=== PATIENT | male | born 1980 | race Caucasian/White ===

== ENCOUNTER 2018-10-26 15:54 | Inpatient (IN) ==
[2018-10-26 16:41] LABS: Baso % (Auto) 0.1 % (0.0-2.0); Hematocrit 53.1 % (39.0-51.0); Hemoglobin 18.8 gm/dL (13.0-17.0); Lymph # (Auto) 1.4 th/mm3 (1.0-4.8); Lymph % (Auto) 6.1 % (9.0-44.0); Mean Corpuscular HGB Conc 35.5 % (32.0-36.0); Mean Corpuscular Hemoglobin 31.4 pg (27.0-34.0); Mean Corpuscular Volume 88.5 fL (80.0-100.0); Mean Platelet Volume 7.8 fL (7.0-11.0); Mono # (Auto) 1.5 th/mm3 (0.0-0.9); Mono % (Auto) 6.8 % (0.0-8.0); Neut # (Auto) 19.5 th/mm3 (1.8-7.7); Platelet Count 340 th/mm3 (150-450); Red Cell Distribution Width 15.2 % (11.6-17.2); White Blood Count 22.4 th/mm3 (4.0-11.0)
--- NOTE | 2018-10-26 16:45 | XR ---
EXAM DATE: 10/26/2018 4:34 PM EST AGE/SEX: 38 years / Male INDICATIONS: Chest pain CLINICAL DATA: This is the patient's initial encounter. Patient reports that signs and symptoms have been present for 2 weeks and indicates a pain score of 8/10. MEDICAL/SURGICAL HISTORY: None. None. COMPARISON: No prior exams available for comparison. FINDINGS: The lungs are clear without infiltrate, nodule, or mass. There is no appreciable pleural effusion for technique. Heart and mediastinum are unremarkable. CONCLUSION: No acute cardiopulmonary disease. Electronically signed by: Fox Whitney MD Board Certified Radiologist 10/26/2018 4:43 PM EST
[2018-10-26 16:46] LABS: Activated Partial Thrombo Time 23.1 sec (23.4-31.7)
[2018-10-26 17:05] LABS: Alanine Aminotransferase 48 U/L (12-78); Albumin 3.9 g/dL (3.4-5.0); Anion Gap 10 meq/L (5-15); Aspartate Aminotransferase 36 U/L (15-37); Blood Urea Nitrogen 17 mg/dL (7-18); Calcium 8.5 mg/dL (8.5-10.1); Carbon Dioxide 23.2 meq/L (21.0-32.0); Chloride 102 meq/L (98-107); Glomerular Filtration Rate 53 mL/min (>89); Glucose,Random 140 mg/dL (74-106); Magnesium 1.9 mg/dL (1.5-2.5); Potassium 3.9 meq/L (3.5-5.1); Sodium 135 meq/L (136-145)
[2018-10-26 17:06] LABS: Alkaline Phosphatase 128 U/L (45-117); Creatine Kinase 150 U/L (39-308); Lipase 16783 U/L (73-393); Total Protein 7.9 g/dL (6.4-8.2)
[2018-10-26] MEDS ORDERED: Morphine Inj 4 MG/ML Vial IV.PUSH ONE (17:07)
--- NOTE | 2018-10-26 17:13 | ED ---
HPI General Chief Complaint: Chest Pain Stated Complaint: Chest Pain/Abd pain/ Time Seen by Provider: 10/26/18 16:01 Source: patient Mode of arrival: ambulatory Limitations: other (pain) History of Present Illness HPI narrative: 38-year-old male presents with shortness of breath, chest pain and upper abdominal pain over the past couple of days. He states last week he went to an urgent care and was given an antibiotic for an upper respiratory infection. He states he has a little bit of a cough but that portion has gotten better. He states he is having significant pain and having a hard time answering questions. His mother helps supplement history. Related Data Home Medications Medication Instructions Recorded Confirmed amoxicillin-pot clavulanate 1 tab PO BID 10/26/18 10/26/18 [Augmentin] prednisone 60 mg PO DAILY 10/26/18 10/26/18 Allergies Allergy/AdvReac Type Severity Reaction Status Date / Time No Known Allergies Allergy Verified 10/26/18 16:04 Review of Systems ROS: all other systems reviewed are negative PMFSH History History Provided By: Patient (Denies medical history) Social History Social History Smoking Status: Never smoker How Often Do You Have a Drink Containing Alcohol: Never Recent Travel in [place] within the Last 8 Weeks: No Recent Out of Country Travel within the Last 8 Weeks: No Immunization History Tetanus Immunization: Unsure Exam Narrative Exam Narrative: GENERAL: 38 y/o male who appears uncomfortable SKIN: Focused skin assessment cool/dry. HEAD: Atraumatic. Normocephalic. EYES: Pupils equal and round. No scleral icterus. No injection or drainage. ENT: No nasal bleeding or discharge. Mucous membranes pink and moist. NECK: Trachea midline. No JVD. CARDIOVASCULAR: Regular rate and rhythm. RESPIRATORY: No accessory muscle use. Clear to auscultation. Breath sounds equal bilaterally. GASTROINTESTINAL: Abdomen soft,ttp to upper abdomen, MUSCULOSKELETAL: No obvious deformities. No clubbing. No cyanosis. NEUROLOGICAL: Awake. Motor grossly within normal limits. Normal speech. Course Reevaluation(s) Reevaluation #1: Given significantly elevated white count lactate was added on an IV fluid bolus was given. Morphine provided as pain is increasing Reevaluation #2: Patient has significantly elevated lipase consistent with pancreatitis. CT chest canceled. Will proceed with CT abdomen and admit, patient updated and feels better Consultations Consultation #1: dr castaneda agrees to admit Initial Documented Vital Signs Temperature 96.0 F L 10/26/18 15:56 Pulse Rate 107 H 10/26/18 15:56 Respiratory Rate 32 H 10/26/18 15:56 Blood Pressure 157/110 H 10/26/18 15:56 Pulse Oximetry 98 10/26/18 15:56 Last Documented Vital Signs Temperature 98.5 F 10/26/18 16:22 Pulse Rate 89 10/26/18 17:22 Respiratory Rate 32 H 10/26/18 15:56 Blood Pressure 157/110 H 10/26/18 15:56 Pulse Oximetry 98 10/26/18 15:56 Medical Decision Making MDM Narrative Medical decision making narrative: We will check blood work, imaging and reevaluate Medical Screen Exam Complete: Yes Emergency Medical Condition: Yes Differential Diagnosis Differential Diagnosis: Cholecystitis, kidney stone, PE, gastric ulcer Lab Data Result diagrams: 10/26/18 16:17 10/26/18 16:17 Lab Results 10/26/18 10/26/18 10/26/18 Range/Units 16:17 16:17 16:17 WBC 22.4 H (4.0-11.0) th/mm3 RBC 6.00 H (4.50-5.90) mil/mm3 Hgb 18.8 H (13.0-17.0) gm/dL Hct 53.1 H (39.0-51.0) % MCV 88.5 (80.0-100.0) fL MCH 31.4 (27.0-34.0) pg MCHC 35.5 (32.0-36.0) % RDW 15.2 (11.6-17.2) % Plt Count 340 (150-450) th/mm3 MPV 7.8 (7.0-11.0) fL Prelim Diff (Auto) Slide review pending Neut % (Auto) 87.0 H (16.0-70.0) % Lymph % (Auto) 6.1 L (9.0-44.0) % Gaines % (Auto) 6.8 (0.0-8.0) % Eos % (Auto) 0.0 (0.0-4.0) % Baso % (Auto) 0.1 (0.0-2.0) % Neut # (Auto) 19.5 H (1.8-7.7) th/mm3 Lymph # (Auto) 1.4 (1.0-4.8) th/mm3 Gaines # (Auto) 1.5 H (0.0-0.9) th/mm3 Eos # (Auto) 0.0 (0.0-0.4) th/mm3 Baso # (Auto) 0.0 (0.0-0.2) th/mm3 WBC Differential . Diff Scan Auto diff confirmed Differential Comment . PT 10.0 (9.8-11.6) sec INR 1.0 Ratio APTT 23.1 L (23.4-31.7) sec Sodium 135 L (136-145) meq/L Potassium 3.9 (3.5-5.1) meq/L Chloride 102 (98-107) meq/L Carbon Dioxide 23.2 (21.0-32.0) meq/L Anion Gap 10 (5-15) meq/L BUN 17 (7-18) mg/dL Creatinine 1.46 H (0.60-1.30) mg/dL Estimated GFR 53 L (>89) mL/min Random Glucose 140 H (74-106) mg/dL Calcium 8.5 (8.5-10.1) mg/dL Magnesium 1.9 (1.5-2.5) mg/dL Total Bilirubin 0.7 (0.2-1.0) mg/dL AST 36 (15-37) U/L ALT 48 (12-78) U/L Alkaline Phosphatase 128 H (45-117) U/L Total Creatine Kinase 150 (39-308) U/L CK-MB (CK-2) 2.4 (0.5-3.6) ng/mL Troponin I Less than 0.02 L (0.02-0.05) ng/mL B-Natriuretic Peptide (0-100) pg/mL Total Protein 7.9 (6.4-8.2) g/dL Albumin 3.9 (3.4-5.0) g/dL Lipase 64703 H (73-393) U/L Serum Alcohol Less than 3 (0-5) mg/dL 10/26/18 Range/Units 16:17 WBC (4.0-11.0) th/mm3 RBC (4.50-5.90) mil/mm3 Hgb (13.0-17.0) gm/dL Hct (39.0-51.0) % MCV (80.0-100.0) fL MCH (27.0-34.0) pg MCHC (32.0-36.0) % RDW (11.6-17.2) % Plt Count (150-450) th/mm3 MPV (7.0-11.0) fL Prelim Diff (Auto) Neut % (Auto) (16.0-70.0) % Lymph % (Auto) (9.0-44.0) % Gaines % (Auto) (0.0-8.0) % Eos % (Auto) (0.0-4.0) % Baso % (Auto) (0.0-2.0) % Neut # (Auto) (1.8-7.7) th/mm3 Lymph # (Auto) (1.0-4.8) th/mm3 Gaines # (Auto) (0.0-0.9) th/mm3 Eos # (Auto) (0.0-0.4) th/mm3 Baso # (Auto) (0.0-0.2) th/mm3 WBC Differential Diff Scan Differential Comment PT (9.8-11.6) sec INR Ratio APTT (23.4-31.7) sec Sodium (136-145) meq/L Potassium (3.5-5.1) meq/L Chloride (98-107) meq/L Carbon Dioxide (21.0-32.0) meq/L Anion Gap (5-15) meq/L BUN (7-18) mg/dL Creatinine (0.60-1.30) mg/dL Estimated GFR (>89) mL/min Random Glucose (74-106) mg/dL Calcium (8.5-10.1) mg/dL Magnesium (1.5-2.5) mg/dL Total Bilirubin (0.2-1.0) mg/dL AST (15-37) U/L ALT (12-78) U/L Alkaline Phosphatase (45-117) U/L Total Creatine Kinase (39-308) U/L CK-MB (CK-2) (0.5-3.6) ng/mL Troponin I (0.02-0.05) ng/mL B-Natriuretic Peptide 7 (0-100) pg/mL Total Protein (6.4-8.2) g/dL Albumin (3.4-5.0) g/dL Lipase (73-393) U/L Serum Alcohol (0-5) mg/dL Imaging Data Radiologist's impression: Chest X-Ray 10/26/18 16:09 CONCLUSION: No acute cardiopulmonary disease. Discharge Plan Discharge Disposition Patient Disposition: ED Admit(ED Internal Use Only) Discharge Order Discharge Orders: ED Use Only Admit Order (Routine); Ordered 10/26/18 Ordered By: Barbara Morataya Discharge Details Diagnosis: Acute pancreatitis Physicians Team ED Provider: Barbara Morataya Primary Care Provider: Primary Care Alexis,Angie Attending Provider: Cyril Castaneda Status ED Status: Admitted Patient
[2018-10-26] MEDS ORDERED: Sod Chloride 0.9% Inj 1,000 ML IV.SIG SCH (17:15)
[2018-10-26] MEDS ORDERED: Piperacil/Tazo 3.375 GM Premix 3.375 GM/50 ML PIGGYBACK IV.SIG ONE (17:15)
[2018-10-26 17:22] LABS: Creatine Kinase MB 2.4 ng/mL (0.5-3.6)
[2018-10-26] MEDS: Sod Chloride 0.9% Inj 1,000 ML IV.SIG SCH ×2 (17:23→18:15)
--- NOTE | 2018-10-26 18:03 | CT ---
EXAM DATE: 10/26/2018 5:55 PM EST AGE/SEX: 38 years / Male INDICATIONS: Epigastric pain and shortness of breath. CLINICAL DATA: This is the patient's initial encounter. Patient reports that signs and symptoms have been present for 2 days and indicates a pain score of 10/10. MEDICAL/SURGICAL HISTORY: None. None. ORAL CONTRAST: No oral contrast ingested. RADIATION DOSE: 17.07 CTDI (mGy) ; Patient body habitus COMPARISON: No prior exams available for comparison. TECHNIQUE: Multiple contiguous axial images were obtained through the abdomen and pelvis following b olus infusion of 97 ml Omnipaque 350 (iohexol) nonionic water-soluble contrast as a single exam dos e. No oral contrast ingested. Using automated exposure control and adjustment of the mA and/or kV ac cording to patient size, radiation dose was kept as low as reasonably achievable to obtain optimal di agnostic quality images. DICOM format image data is available electronically for review and comparis on. FINDINGS: Lower Lungs: The visualized lower lungs are clear. Liver: Diffuse hypodensity indicating hepatic steatosis. No evidence of focal mass or biliary ductal dilatation. Gallbladder is within normal limits. Spleen: Homogeneous density without enlargement. Pancreas: There is prominent diffuse peripancreatic edema and stranding opacity. Fluid extends into the anterior pararenal spaces. No rounded organized fluid collections identified. No prominent areas of nonenhancing pancreatic necrosis. Kidneys: Normal in size and shape. No evidence of mass or hydronephrosis. Adrenal Glands: Unremarkable. Aorta: The aorta and proximal iliac vessels are grossly unremarkable without aneurysmal dilation. Bowel/Mesentery: No evidence of bowel dilatation. Appendix within normal limits. No free air. Abdominal Wall: Intact. Retroperitoneum: No evidence of adenopathy in the retrocrural, para-aortic, or deep pelvic regions. Bladder: Contours are smooth. Reproductive Organs: No abnormal masses or calcifications seen. Inguinal: The inguinal region is unremarkable without evidence of adenopathy. Bony Structures: Unremarkable. CONCLUSION: 1. Prominent diffuse peripancreatic edema indicating acute pancreatitis. No areas of nonenhancing pa ncreatic necrosis or organized fluid collections identified. 2. Hepatic steatosis. Electronically signed by: Marco Antonio Neil MD Board Certified Radiologist 10/26/2018 6:01 PM EST
[2018-10-26] MEDS: Sod Chloride 0.9% Inj 1,000 ML IV.CONT SCH (18:14)
--- NOTE | 2018-10-26 18:21 | P.HPIM ---
History of Present Illness Primary Care Physician: No Primary Care Physician History of Present Illness: 38-year-old male with a past medical history of obesity and recent cough presents to the ER with severe abdominal pain. Emergency room workup revealed a markedly elevated lipase level and CT confirmation of pancreatitis. He states that he has been coughing for the last 3 weeks and utilized a number of [id number] medications including Sudafed and Robitussin, when that did not work he visited his physician and was prescribed Augmentin along with prednisone. Last night he had 2 alcohol beverages and onset of his symptoms were noticeable this morning, worsening throughout the day. He has had nausea associated with his pain, denies vomiting , denies diarrhea. He denies chest pain, heart palpitations, shortness of breath. Inpatient Certification Inpatient Certification: I certify that the inpatient services were ordered in accordance with Medicare regulations governing the order. This includes certification that hospital inpatient services are reasonable and necessary and in the case of services not specified as inpatient-only under 42 CFR 419.22(n), that they are appropriately provided as inpatient services in accordance to with the 2-midnight benchmark under 43 CFR 412.3(e) Estimated Total Length of Stay (Days): 4 Plans for Post Hospital Care: Home Review of Systems Review of Systems: all other systems reviewed are negative [facility] Social History Social History Smoking Status: Never smoker How Often Do You Have a Drink Containing Alcohol: Never Recent Travel in [facility] within the Last 8 Weeks: No Recent Out of Country Travel within the Last 8 Weeks: No Immunization History Tetanus Immunization: Unsure Medications and Allergies Allergies Allergy/AdvReac Type Severity Reaction Status Date / Time No Known Allergies Allergy Verified 10/26/18 16:04 Home Medications Medication Instructions Recorded Confirmed Type amoxicillin-pot clavulanate 1 tab PO BID 10/26/18 10/26/18 History [Augmentin] prednisone 60 mg PO DAILY 10/26/18 10/26/18 History Active Medications: Active Medications Al Hydroxide/Mg Hydroxide (Milk Of Radha Liq) 30 ml PO Q12H PRN PRN Reason: Mild Constipation Sodium Chloride (Ns Inj) 1,000 mls @ 100 mls/hr IV.CONT .Q10H SYLVIA Last Admin: 10/26/18 18:14 Dose: 100 mls/hr Morphine Sulfate (Morphine Inj) 4 mg IV.PUSH Q4H PRN PRN Reason: Acute Pain Ondansetron HCl (Zofran Inj) 4 mg IV.PUSH Q6H PRN PRN Reason: NAUSEA OR VOMITING Sodium Chloride (Ns Flush) 2 ml IV.FLUSH UNSCH PRN PRN Reason: FLUSH AFTER USING IV ACCESS Sodium Chloride (Ns Flush) 2 ml IV.FLUSH BID SYLVIA Sodium Chloride (Ns Flush) 2 ml IV.FLUSH PRN PRN PRN Reason: FLUSH AFTER USING IV ACCESS Physical Exam Vital signs: Last Vital Signs Temp 98.5 F 10/26/18 16:22 Pulse 89 10/26/18 17:22 Resp 32 H 10/26/18 15:56 BP 157/110 H 10/26/18 15:56 Pulse Ox 98 10/26/18 15:56 Intake & Output 10/24/18 10/25/18 10/26/18 10/27/18 06:59 06:59 06:59 06:59 Intake Total 1050 / 1050 Balance 1050 / 1050 Weight 140.614 kg Narrative: GENERAL: AAOx3, no acute distress, adequate nutrition obese, and pain SKIN: Warm and dry, no rashes. HEAD: Atraumatic. Normocephalic. EYES: Pupils equal, round, reactive to light. No scleral icterus. No injection or drainage. ENT: No nasal bleeding or discharge. Moist mucous membranes. Nonerythematous oropharynx. NECK: Trachea midline. No JVD. Thyroid size within normal limits. CARDIOVASCULAR: Borderline tachycardia. No murmur, no gallops, no rubs. RESPIRATORY: Clear and equal to auscultation bilaterally. No crackles, no wheezes. No accessory muscle use. GASTROINTESTINAL: Abdomen soft, LUQ TTP, nondistended, hypoactive bowel sounds. Hepatic and splenic margins not palpable. MUSCULOSKELETAL: Extremities without clubbing or cyanosis. No obvious deformities. No edema. NEUROLOGICAL: Awake and alert. No obvious cranial nerve deficits. Motor grossly within normal limits. No focal deficits. Five out of 5 muscle strength in the arms and legs. Normal speech. PSYCHIATRIC: Appropriate mood and affect; insight and judgment normal. Results Labs CBC & Chem 7: 10/26/18 16:17 10/26/18 16:17 Imaging Impressions Abdomen/Pelvis CT 10/26/18 16:09 CONCLUSION: 1. Prominent diffuse peripancreatic edema indicating acute pancreatitis. No areas of nonenhancing pancreatic necrosis or organized fluid collections identified. 2. Hepatic steatosis. Chest X-Ray 10/26/18 16:09 CONCLUSION: No acute cardiopulmonary disease. Caprini VTE Risk Assessment Caprini VTE Risk Assessment: Moderate/High Risk (score >= 2) Caprini Risk Assessment Model: Point Value = 1 Point Value = 2 Point Value = 3 Point Value = 5 Age 41-60 Minor surgery BMI > 25 kg/m2 Swollen legs Varicose veins or History of unexplained or recurrent spontaneous Oral contraceptives or hormone replacement Sepsis (< 1 month) Serious lung disease, including pneumonia (< 1 month) Abnormal pulmonary function Acute myocardial infarction Congestive heart failure (< 1 month) History of inflammatory bowel disease Medical patient at bed rest Age 61-74 Arthroscopic surgery Major open surgery (> 45 min) Laparoscopic surgery (> 45 min) Malignancy Confined to bed (> 72 hours) Immobilizing plaster cast Central venous access Age >= 75 History of VTE Family history of VTE Factor V Leiden Prothrombin [id number] Lupus anticoagulant Anticardiolipin antibodies Elevated serum homocysteine Heparin-induced thrombocytopenia Other congenital or acquired thrombophilia Stroke (< 1 month) Elective arthroplasty Hip, pelvis, or leg fracture Acute spinal cord injury (< 1 month) Prophylaxis Regimen: Total Risk Factor Score Risk Level Prophylaxis Regimen 0-1 Low Early ambulation 2 Moderate Order ONE of the following: *Sequential Compression Device (SCD) *Heparin 5000 units SQ BID 3-4 Higher Order ONE of the following medications: *Heparin 5000 units SQ TID *Enoxaparin/Lovenox 40 mg SQ daily (WT < 150 kg, CrCl > 30 mL/min) *Enoxaparin/Lovenox 30 mg SQ daily (WT < 150 kg, CrCl > 10-29 mL/min) *Enoxaparin/Lovenox 30 mg SQ BID (WT < 150 kg, CrCl > 30 mL/min) AND/OR *Sequential Compression Device (SCD) 5 or more Highest Order ONE of the following medications: *Heparin 5000 units SQ TID (Preferred with Epidurals) *Enoxaparin/Lovenox 40 mg SQ daily (WT < 150 kg, CrCl > 30 mL/min) *Enoxaparin/Lovenox 30 mg SQ daily (WT < 150 kg, CrCl > 10-29 mL/min) *Enoxaparin/Lovenox 30 mg SQ BID (WT < 150 kg, CrCl > 30 mL/min) AND *Sequential Compression Device (SCD) Assessment and Plan Plan Acute pancreatitis Patient denies any previous episodes He denies any excessive alcohol intake This result was possibly a combination of alcohol with a number of prescription and [id number] meds We will check cholesterol level for triglycerides with a.m. labs Continue with morphine for pain control, added Toradol for breakthrough Monitor on telemetry for risk of bleeding Upper respiratory infection Covered with Zosyn IV Chest x-ray within normal limits DVT prophylaxis SCDs
[2018-10-26] MEDS: Ketorolac Inj 30 MG/ML (IVP) Vial IV.PUSH PRN (20:38)
[2018-10-26] MEDS: Morphine Inj 4 MG/ML Vial IV.PUSH PRN (20:51)
[2018-10-27] MEDS: Morphine Inj 4 MG/ML Vial IV.PUSH PRN ×2 (01:01→05:49)
[2018-10-27] MEDS: Ketorolac Inj 30 MG/ML (IVP) Vial IV.PUSH PRN (02:49)
[2018-10-27 06:16] LABS: Hematocrit 56.1 % (39.0-51.0); Hemoglobin 18.6 gm/dL (13.0-17.0); Mean Corpuscular HGB Conc 33.2 % (32.0-36.0); Mean Corpuscular Hemoglobin 29.8 pg (27.0-34.0); Mean Corpuscular Volume 89.7 fL (80.0-100.0); Mean Platelet Volume 7.8 fL (7.0-11.0); Platelet Count 280 th/mm3 (150-450); Red Blood Count 6.26 mil/mm3 (4.50-5.90); Red Cell Distribution Width 15.3 % (11.6-17.2); White Blood Count 24.4 th/mm3 (4.0-11.0)
[2018-10-27 06:43] LABS: Anion Gap 12 meq/L (5-15); Blood Urea Nitrogen 18 mg/dL (7-18); Calcium 8.5 mg/dL (8.5-10.1); Carbon Dioxide 17.7 meq/L (21.0-32.0); Chloride 106 meq/L (98-107); Cholesterol 217 mg/dL (120-200); Glucose,Random 146 mg/dL (74-106); Potassium 4.1 meq/L (3.5-5.1); Sodium 136 meq/L (136-145); Triglycerides 256 mg/dL (42-150)
[2018-10-27 06:44] LABS: HDL Cholesterol 44.2 mg/dL (40.0-60.0); LDL Cholesterol,Calculated 122 mg/dL (0-99); Lipase 11304 U/L (73-393)
--- NOTE | 2018-10-27 07:22 | P.PNIM ---
Subjective Interval history: Patient complain of abdominal pain says current pain medications does not help. No change pain medications per pain scale. Also lactic acid is noted elevated. And patient received bolus was normal saline. Also low urine output. Patient is anxious. Also with constipation did not have a bowel movement in 4 days. Passing gas. With abdominal distention. No fever or chills. Not much nausea, did not vomit. Physical Exam Vital signs: Last Vital Signs Temp 97.8 F 10/27/18 04:15 Pulse 110 H 10/27/18 04:15 Resp 20 10/27/18 04:15 BP 135/83 10/27/18 04:15 Pulse Ox 98 10/27/18 04:15 Intake & Output 10/25/18 10/26/18 10/27/18 10/28/18 06:59 06:59 06:59 06:59 Intake Total 1065 / 1065 Balance 1065 / 1065 Weight 92.9 kg Narrative: GENERAL: AAOx3, no acute distress, adequate nutrition obese, and pain CARDIOVASCULAR: Borderline tachycardia. No murmur, no gallops, no rubs. RESPIRATORY: Clear and equal to auscultation bilaterally. No crackles, no wheezes. No accessory muscle use. GASTROINTESTINAL: Abdomen soft, LUQ TTP, distended, hypoactive bowel sounds. MUSCULOSKELETAL: Extremities without clubbing or cyanosis. No obvious deformities. No edema. NEUROLOGICAL: Awake and alert. No obvious cranial nerve deficits. Motor grossly within normal limits. No focal deficits. Five out of 5 muscle strength in the arms and legs. Normal speech. PSYCHIATRIC: Appropriate mood and affect; insight and judgment normal. Results Labs CBC & Chem 7: 10/27/18 06:00 10/27/18 06:00 Imaging Imaging: Impressions Abdomen/Pelvis CT 10/26/18 16:09 CONCLUSION: 1. Prominent diffuse peripancreatic edema indicating acute pancreatitis. No areas of nonenhancing pancreatic necrosis or organized fluid collections identified. 2. Hepatic steatosis. Chest X-Ray 10/26/18 16:09 CONCLUSION: No acute cardiopulmonary disease. Assessment and Plan Plan Acute pancreatitis Liver steatosis Constipation Patient denies any previous episodes He denies any excessive alcohol intake This result was possibly a combination of alcohol with a number of prescription and bzqn-[id number] meds Check cholesterol level for triglycerides DC morphine as patient says doesn't help, start norco pO per pain scale, add dilaudid IV for breakthrough pain Monitor on telemetry for risk of bleeding With abdominal distention, order KUB, might need NG tube for decompression Bowel regimen Antiemetics and Derrick Upper respiratory infection With severe sepsis leukocytosis, tachycardia, source likely upper respiratory infection versus GI, acute kidney injury with elevated creatinine, lactic acidosis. Trend lactic acid Covered with Zosyn IV Chest x-ray within normal limits Increase IV fluids, give normal saline bolus Decreased urine output, give IVF if still not able to urinate will do bladder scan . Check UA Severe lactic acidosis Give 2L NS and increased mentainance IVF NS at 150 cc/hr DVT prophylaxis SCDs Discussed with the nurse, patient. Progress Note: Quality VTE Deep Vein Thrombosis/Pulmonary Embolism Present on Admission: No
[2018-10-27] MEDS ORDERED: Sod Chloride 0.9% Inj 2,000 ML IV.SIG ONE (07:45)
[2018-10-27] MEDS: Sod Chloride 0.9% Inj 1,000 ML IV.CONT SCH ×3 (08:30→23:17)
[2018-10-27] MEDS: HYDROmorphone PF Inj 0.5 MG/0.5 ML Syringe IV.PUSH PRN ×4 (08:35→21:44)
[2018-10-27] MEDS ORDERED: LORazepam 0.5 MG Tablet PO PRN ×2 (12:50→15:00)
[2018-10-27 13:39] LABS: Bacteria,Urine Rare /hpf; Bilirubin,Urine Negative (Negative); Clarity,Urine Cloudy (Clear); Color,Urine Amber (Yellw/Straw); Glucose,Urine (UA) Negative (Negative); Hyaline Casts,Urine 142 /lpf (0-3); Leukocyte Esterase,Urine Negative (Negative); Mucus,Urine Moderate /lpf (Occasional); Nitrite,Urine Negative (Negative); Specific Gravity,Urine 1.045 (1.002-1.035); Squamous Epithelial Cell,Urine 1 /hpf (0-5)
[2018-10-27] MEDS: Sod Chloride 0.9% Inj 1,000 ML IV.SIG SCH ×2 (14:55→15:35)
[2018-10-27] MEDS: Simethicone 125 MG Chew Tablet PO PRN (15:34)
[2018-10-27] MEDS ORDERED: Sod Chloride 0.9% Inj 1,000 ML IV.SIG ONE (16:11)
--- NOTE | 2018-10-27 18:10 | XR ---
EXAM DATE: 10/27/2018 6:07 PM EST AGE/SEX: 38 years / Male INDICATIONS: Abdominal distention. CLINICAL DATA: This is the patient's initial encounter. Patient reports that signs and symptoms have been present for 1 day and indicates a pain score of 6/10. MEDICAL/SURGICAL HISTORY: None. None. COMPARISON: No prior exams available for comparison. FINDINGS: The abdominal bowel gas pattern is normal. No abnormal masses, calcifications, or organomegaly is s een. The osseous structures are unremarkable. CONCLUSION: Radiographically benign abdomen without obstruction or pneumoperitoneum. Electronically signed by: Terrence Medina MD Board Certified Radiologist 10/27/2018 6:08 PM EST
--- NOTE | 2018-10-27 21:20 | ECG ---
Date Performed: 10/26/2018 Time Performed: 16:07:10 PTAGE: 38 years EKG: Sinus rhythm NORMAL ECG INTERPRETATION BASED ON A DEFAULT AGE OF 38 YEARS NO PREVIOUS TRACING DOCTOR: David Pfeiffer Interpretating Date/Time 10/27/2018 21:18:10
[2018-10-27] MEDS ORDERED: Bisacodyl 10 MG Supp RECTAL ONE (22:01)
[2018-10-27] MEDS ORDERED: HYDROmorphone PF Inj 2 MG/ML Vial IV.PUSH ONE (22:01)
--- NOTE | 2018-10-28 01:31 | XR ---
EXAM DATE: 10/28/2018 1:22 AM EST AGE/SEX: 38 years / Male INDICATIONS: NG tube placement. Nausea, vomiting, constipation. CLINICAL DATA: This is the patient's subsequent encounter. Patient reports that signs and symptoms h ave been present for 2 days and indicates a pain score of 8/10. MEDICAL/SURGICAL HISTORY: Pancreatitis. None. COMPARISON: No prior exams available for comparison. FINDINGS: Examination of the abdomen demonstrates a nasogastric tube with the tip in the left upper quadrant at the duodenal jejunal junction. The stomach is decompressed. Gas-filled loops of nondilated large and small bowel noted within the upper abdomen. CONCLUSION: Tip of the NG tube at the duodenal jejunal junction. Electronically signed by: Juan Miguel Johnson MD Board Certified Radiologist 10/28/2018 1:29 AM EST
[2018-10-28] MEDS: HYDROmorphone PF Inj 0.5 MG/0.5 ML Syringe IV.PUSH PRN ×5 (01:45→20:26)
[2018-10-28] MEDS: Sod Chloride 0.9% Inj 1,000 ML IV.CONT SCH ×5 (02:11→23:29)
[2018-10-28] MEDS: Simethicone 125 MG Chew Tablet PO PRN (04:53)
[2018-10-28 05:09] LABS: Baso # (Auto) 0.1 th/mm3 (0.0-0.2); Baso % (Auto) 0.2 % (0.0-2.0); Eos % (Auto) 0.1 % (0.0-4.0); Hematocrit 47.3 % (39.0-51.0); Hemoglobin 15.7 gm/dL (13.0-17.0); Lymph # (Auto) 1.2 th/mm3 (1.0-4.8); Lymph % (Auto) 5.6 % (9.0-44.0); Mean Corpuscular HGB Conc 33.3 % (32.0-36.0); Mean Corpuscular Hemoglobin 30.1 pg (27.0-34.0); Mean Corpuscular Volume 90.3 fL (80.0-100.0); Mean Platelet Volume 7.8 fL (7.0-11.0); Mono # (Auto) 1.5 th/mm3 (0.0-0.9); Neut # (Auto) 18.4 th/mm3 (1.8-7.7); Neut % (Auto) 87.1 % (16.0-70.0); Platelet Count 219 th/mm3 (150-450); Red Blood Count 5.23 mil/mm3 (4.50-5.90); Red Cell Distribution Width 15.5 % (11.6-17.2); White Blood Count 21.1 th/mm3 (4.0-11.0)
[2018-10-28] MEDS: Thiamine Inj 100 MG in Sodium Chlor 0.9% Inj 100 ML IV.SIG SCH ×2 (05:24→09:25)
[2018-10-28 05:41] LABS: Calcium 7.8 mg/dL (8.5-10.1); Carbon Dioxide 22.5 meq/L (21.0-32.0); Potassium 4.8 meq/L (3.5-5.1)
--- NOTE | 2018-10-28 05:56 | CT ---
EXAM DATE: 10/28/2018 5:48 AM EST AGE/SEX: 38 years / Male INDICATIONS: Abdominal pain, vomiting. Evaluate for ischemic bowel. CLINICAL DATA: This is the patient's initial encounter. Patient reports that signs and symptoms have been present for 1 day and indicates a pain score of 10/10. MEDICAL/SURGICAL HISTORY: Pancreatitis. None. RADIATION DOSE: 7.56 CTDI (mGy) COMPARISON: No prior exams available for comparison. TECHNIQUE: Volumetric scanning was performed using a multi-row detector CT scanner during bolus infu clarissa of 100 ml Omnipaque 350 (iohexol) nonionic water-soluble contrast as a single exam dose. The data was post processed with a variety of visualization algorithms including full volume maximum inte nsity projection, multi-planar sliding thin slab reformation, curved planar reformation, and surface rendering techniques. Using automated exposure control and adjustment of the mA and/or kV according to patient size, radiation dose was kept as low as reasonably achievable to obtain optimal diagnostic quality images. DICOM format image data is available electronically for review and comparison. FINDINGS: ABDOMINAL AORTA: The abdominal aorta is normal in caliber and course. Aorta and inflow vessels are pa tent. The celiac and SMA are patent. SKYLER is occluded. Renal arteries are patent bilaterally. OTHER STRUCTURES: An acute inflammatory process is seen involving the pancreas and surrounding fat. A trace amount of free fluid is seen within the retroperitoneum adjacent to the spleen. A small amount of ascitic fluid is seen adjacent to the liver. No dilated bowel loops observed. Tiny posterior laye ring pleural effusions are noted bilaterally. Consolidation within both lung bases more pronounced on the left likely relating to atelectasis. CONCLUSION: 1. Although the SKYLER is occluded the celiac and SMA are widely patent. The SKYLER occlusion is clinicall y insignificant. 2. Changes consistent with acute pancreatitis. No pseudocyst observed. 3. Small volume ascites. 4. Bilateral pleural effusions with bibasilar consolidations likely relating to atelectasis. Electronically signed by: Juan Miguel Johnson MD Board Certified Radiologist 10/28/2018 5:55 AM EST
[2018-10-28 07:51] LABS: Eosinophils 1 % (0-4); Lymphocytes 4 % (9-44); Monocytes 6 % (0-8); Platelet Estimate Normal (Normal); Platelet Morphology Normal (Normal)
[2018-10-28 07:52] LABS: RBC Morphology Normal (Normal)
--- NOTE | 2018-10-28 15:48 | P.PNIM ---
Subjective Interval history: Follow-up visit for abdominal pain, abdominal distention, acute pancreatitis, liver steatosis, possible sepsis, anxiety, alcoholism and urinary retention Patient seen and examined laying in bed, NG tube in place, patient denies any pain or shortness of breath other than the discomfort on the stomach. Patient denies any nausea or vomiting. Patient complains about the discomfort on the right nose for NG tube area, stated wants to take the tube out. Discussed with the patient and needs for the NG tube and the benefit. Patient verbalized understanding. Nurse reported concern on patient's increase in anxiety, trying to pull his tube out and his IV out. Nurse reported that patient's family/mother admitted that the patient has been drinking alcohol every day at least 2 drinks a day. And had a recent breakup with a girlfriend which made him drink more. Discussed [facility] protocol, Physical Exam Vital signs: Last Vital Signs Temp 98.2 F 10/28/18 11:37 Pulse 123 H 10/28/18 11:37 Resp 22 10/28/18 11:37 BP 137/62 10/28/18 11:37 Pulse Ox 94 L 10/28/18 11:37 Intake & Output 10/26/18 10/27/18 10/28/18 10/29/18 06:59 06:59 06:59 06:59 Intake Total 3065 / 3065 3221 / 3221 1000 / 1000 Output Total 1250 / 1250 Balance 3065 / 3065 1970 1000 / 1000 Weight 92.9 kg 92.9 kg Narrative: GENERAL: Well-developed, well-nourished, obese male, NG tube in place in no acute distress SKIN: Warm and dry. HEAD: Atraumatic. Normocephalic. EYES: Pupils equal and round. No scleral icterus. No injection or drainage. ENT: No nasal bleeding or discharge. Mucous membranes pink and moist. Right nares NG tube in place NECK: Trachea midline. No JVD. CARDIOVASCULAR: Regular rate and rhythm. RESPIRATORY: No accessory muscle use. Clear to auscultation. Breath sounds equal bilaterally. GASTROINTESTINAL: Abdomen obese soft, non-tender, with abdominal distention., NG tube in place MUSCULOSKELETAL: Extremities without clubbing, cyanosis, or edema. No obvious deformities. NEUROLOGICAL: Awake and alert. No obvious cranial nerve deficits. Generalized weakness moving all 4 extremities. Normal speech. PSYCHIATRIC: Flat mood and affect; insight and judgment normal. Urinary Catheter Management Straight: Cath placed during this visit: yes Urethral indwelling: No Insertion date: 10/28/18 Insertion time: 04:30 Indwelling Urethral Catheter: Cath placed during this visit: yes Urethral indwelling: Yes Insertion date: 10/28/18 Insertion time: 04:30 Results Labs CBC & Chem 7: 10/28/18 04:51 10/28/18 04:51 Imaging Imaging: Impressions Abdomen X-Ray 10/27/18 00:00 CONCLUSION: Radiographically benign abdomen without obstruction or pneumoperitoneum. Abdomen X-Ray 10/28/18 00:54 CONCLUSION: Tip of the NG tube at the duodenal jejunal junction. Abdomen/Pelvis CTA 10/28/18 04:39 CONCLUSION: 1. Although the SKYLER is occluded the celiac and SMA are widely patent. The SKYLER occlusion is clinically insignificant. 2. Changes consistent with acute pancreatitis. No pseudocyst observed. 3. Small volume ascites. 4. Bilateral pleural effusions with bibasilar consolidations likely relating to atelectasis. Assessment and Plan Plan This is a 38-year-old male with a past medical history of obesity and recent cough presents to the ER with severe abdominal pain. Emergency room workup revealed a markedly elevated lipase level and CT confirmation of pancreatitis. Nurse reported that the mother confirmed he is an alcohol drinker, stated drinking more recently due to broke up with a girlfriend. Acute pancreatitis Liver steatosis Constipation -Patient denies any previous episodes, denies any excessive alcohol intake -This result was possibly a combination of alcohol with a number of prescription and [id number] meds -Check cholesterol level for triglycerides -DC morphine as patient says doesn't help, start norco pO per pain scale, add dilaudid IV for breakthrough pain -Monitor on telemetry for risk of bleeding -With abdominal distention, continue NG tube for decompression -KUB: Nasogastric with the tip in the left upper quadrant at the duodenal jejunal junction. The stomach is decompressed. Gas-filled loops of nondilated large and small bowel noted within the upper abdomen -Bowel regimen, continue Antiemetics -CT abd/Pelvis Chest: Prominent diffuse peripancreatic edema indicating acute pancreatitis. No areas of nonenhancing pancreatic necrosis or organized fluid collections identified. Hepatic steatosis -CTA Abd/Pevis: lthough the SKYLER is occluded the celiac and SMA are widely patent. The SKYLER occlusion is clinically insignificant. Changes consistent with acute pancreatitis. No pseudocyst observed. Small volume ascites. Bilateral pleural effusions with bibasilar consolidations likely relating to atelectasis -Lipase elevated, trending down [id number] today, monitor lipase daily x3 Possible sepsis With leukocytosis, tachycardia Possible Upper respiratory infection - source likely upper respiratory infection versus GI, - acute kidney injury with elevated creatinine, lactic acidosis. -Trend lactic acid -continue Zosyn IV -Chest x-ray within normal limits -Increase IV fluids, give normal saline bolus Decreased urine output Urinary retention -Continue IV fluid -Continue Borrego catheter -With daily Borrego catheter care - urine for UA-with C&S negative Severe lactic acidosis - Give 2L NS and increased maintenance IVF NS at 150 cc/hr Anxiety Possible related to alcoholism -CIWA protocol -Ativan PRN -Continue thiamine DVT prophylaxis SCDs Progress Note: Quality VTE Deep Vein Thrombosis/Pulmonary Embolism Present on Admission: No
[2018-10-28] MEDS ORDERED: Piperacil/Tazo 2.25 GM Premix 2.25 GM/50 ML PIGGYBACK IV.SIG SCH (17:00)
[2018-10-28] MEDS ORDERED: Haloperidol Inj 5 MG/ML Ampul IV.PUSH PRN (20:09)
[2018-10-28] MEDS ORDERED: LORazepam 1 MG Tablet PO PRN (20:09)
[2018-10-28] MEDS ORDERED: Vancomycin Consult Pharmacy OTHER PRN (20:12)
[2018-10-28] MEDS ORDERED: Vancomycin Inj 1,250 MG in Sodium Chlor 0.9% Inj 250 ML IV.SIG ONE (20:13)
[2018-10-28] MEDS: Piperacil/Tazo 4.5 GM Premix 4.5 GM/100 ML BAG IV.SIG SCH (23:25)
--- NOTE | 2018-10-29 01:18 | ECG ---
Date Performed: 10/28/2018 Time Performed: 04:55:56 PTAGE: 38 years EKG: Sinus tachycardia Poor R wave progression - probable normal variant Borderline ECG PREVIOUS TRACING : 10/26/2018 16.07 Compared to previous tracing, rate has increased DOCTOR: Mauricio Peters Interpretating Date/Time 10/29/2018 01:18:15
[2018-10-29] MEDS: HYDROmorphone PF Inj 0.5 MG/0.5 ML Syringe IV.PUSH PRN ×5 (02:36→19:54)
[2018-10-29] MEDS: Sod Chloride 0.9% Inj 1,000 ML IV.CONT SCH ×4 (04:02→20:04)
[2018-10-29] MEDS: Piperacil/Tazo 4.5 GM Premix 4.5 GM/100 ML BAG IV.SIG SCH ×4 (04:04→21:09)
[2018-10-29] MEDS ORDERED: Acetaminophen 325 MG Tablet PO ONE (04:32)
[2018-10-29 06:07] LABS: Baso % (Auto) 0.1 % (0.0-2.0); Eos % (Auto) 0.3 % (0.0-4.0); Hematocrit 40.8 % (39.0-51.0); Lymph # (Auto) 1.1 th/mm3 (1.0-4.8); Lymph % (Auto) 8.3 % (9.0-44.0); Mean Corpuscular HGB Conc 34.4 % (32.0-36.0); Mean Corpuscular Hemoglobin 30.7 pg (27.0-34.0); Mean Corpuscular Volume 89.3 fL (80.0-100.0); Mono # (Auto) 1.4 th/mm3 (0.0-0.9); Mono % (Auto) 10.4 % (0.0-8.0); Neut # (Auto) 10.6 th/mm3 (1.8-7.7); Neut % (Auto) 80.9 % (16.0-70.0); Platelet Count 171 th/mm3 (150-450); Red Blood Count 4.57 mil/mm3 (4.50-5.90); Red Cell Distribution Width 15.3 % (11.6-17.2); White Blood Count 13.1 th/mm3 (4.0-11.0)
[2018-10-29 06:29] LABS: Calcium 7.6 mg/dL (8.5-10.1); Carbon Dioxide 22.9 meq/L (21.0-32.0); Potassium 4.1 meq/L (3.5-5.1)
[2018-10-29] MEDS: Thiamine Inj 100 MG in Sodium Chlor 0.9% Inj 100 ML IV.SIG SCH (09:05)
[2018-10-29] MEDS: Vancomycin Inj 1,250 MG in Sodium Chlor 0.9% Inj 250 ML IV.SIG SCH ×2 (11:17→21:41)
--- NOTE | 2018-10-29 13:07 | P.CONGI ---
History of Present Illness Consult date: 10/29/18 Consult reason: Acute pancreatitis Liver steatosis Abdominal pain and distention Chief complaint: Pancreatitis History of Present Illness: This patient is a 38-year-old male with past medical history significant for obesity. Patient also endorses recent cough with generalized body aches and severe abdominal pain. Upon consultation, patient endorses that he has had a dry cough for 3 weeks. States he was recently treated for upper respiratory infection with amoxicillin. Patient states he has had one to 2 weeks of abdominal pain which he describes as sharp and shooting across upper abdomen with abdominal bloating. Patient denies any nausea or vomiting. States pain alleviated by administered pain medication and aggravated by movement. Presently tolerating clear liquid diet without any complaints. Patient denies any history of EGD or colonoscopy in the past. Of note, patient does endorse drinking 2-3 shots of vodka "a few times daily". Patient denies any use of tobacco products. Denies any known family history of gastrointestinal disorders. Patient denies any symptoms of acid reflux, difficulty swallowing. States he normally has a bowel movement every 1-2 days formed and brown without any noted bleeding. Our service has been consulted to evaluate patient for pancreatitis. <Mee Le - Last Filed: 10/29/18 12:53> Review of Systems All other systems reviewed negative except as stated in HPI <Mee Le - Last Filed: 10/29/18 12:53> PMFSH - History History Provided By: Patient - Tobacco History Second Hand Smoke Exposure: No Smoking Status: Never smoker - Alcohol History How Often Do You Have a Drink Containing Alcohol: 2 to 3 times a week - Substance Use History Substance History: No History of Abuse - Travel History Recent Travel in the [place] Within the Last 8 Weeks: No Recent Travel Out of the Country Within the Last 8 Weeks: No - Immunization History Tetanus Immunization: Unsure Hx Influenza Vaccine This Season: No <Mee Le - Last Filed: 10/29/18 12:53> Medications and Allergies Active Medications: Active Medications Hydrocodone Bitart/Acetaminophen ([place] 5/325) 1 tab PO Q4H PRN PRN Reason: pain 2-6 Hydrocodone Bitart/Acetaminophen ([place] 10/325) 1 tab PO Q4H PRN PRN Reason: pain 7-10 Last Admin: 10/29/18 12:18 Dose: 1 tab Al Hydroxide/Mg Hydroxide (Milk Of Radha Liq) 30 ml PO Q12H PRN PRN Reason: Mild Constipation Last Admin: 10/27/18 15:33 Dose: 30 ml Flumazenil (Romazicon Inj) 0.2 mg IV.PUSH Q1M PRN PRN Reason: OVERSEDATION Haloperidol Lactate (Haldol Inj) 1 mg IV.PUSH Q15M PRN PRN Reason: for severe agitation Hydromorphone HCl (Dilaudid Pf Inj) 0.2 mg IV.PUSH Q6H PRN PRN Reason: breakthrough pain Sodium Chloride (Ns Inj) 1,000 mls @ 200 mls/hr IV.CONT .Q5H [facility] Last Infusion: 10/29/18 12:20 Dose: 200 mls/hr Thiamine HCl 100 mg/ Sodium (Chloride) 101 mls @ 100 mls/hr IV.SIG DAILY [facility] Last Infusion: 10/29/18 10:06 Dose: Infused Piperacillin/Tazobactam/Dextrose (Zosyn 4.5 Gm Premix) 4.5 gm in 100 mls @ 200 mls/hr IV.SIG Q6H [facility] Last Infusion: 10/29/18 10:25 Dose: Infused Vancomycin HCl 1,250 mg/ (Sodium Chloride) 262.5 mls @ 250 mls/hr IV.SIG Q12H [facility] Last Infusion: 10/29/18 12:20 Dose: Infused Lorazepam (Ativan Inj) 1 mg IV.PUSH Q8H PRN PRN Reason: ANXIETY Last Admin: 10/28/18 23:49 Dose: 1 mg Lorazepam (Ativan) 1 mg PO Q4H PRN PRN Reason: for CIWA 8-10 Lorazepam (Ativan) 2 mg PO Q2H PRN PRN Reason: for CIWA 11-14 Lorazepam (Ativan Inj) 2 mg IV.PUSH Q2H PRN PRN Reason: for CIWA 11-14 Lorazepam (Ativan Inj) 2 mg IV.PUSH Q1H PRN PRN Reason: for CIWA 15-20 Lorazepam (Ativan Inj) 2 mg IV.PUSH Q15M PRN PRN Reason: for CIWA > 20 Lorazepam (Ativan Inj) 1 mg IV.PUSH Q4H PRN PRN Reason: for CIWA 8-10 Miscellaneous Information ([facility] Ordered Lab Info) 0 each OTHER ONCE ONE Stop: 10/30/18 09:46 Ondansetron HCl (Zofran Inj) 4 mg IV.PUSH Q6H PRN PRN Reason: NAUSEA OR VOMITING Last Admin: 10/28/18 23:50 Dose: 4 mg Pharmacy Profile Note (Vancomycin Consult Pharmacy) 1 each OTHER UNSCH PRN PRN Reason: Pharmacy to dose Simethicone (Phazyme Chew) 125 mg PO TID PRN PRN Reason: GAS RETENTION Last Admin: 10/28/18 04:53 Dose: 125 mg Sodium Chloride (Ns Flush) 2 ml IV.FLUSH BID SYLVIA Last Admin: 10/29/18 09:05 Dose: 2 ml Sodium Chloride (Ns Flush) 2 ml IV.FLUSH PRN PRN PRN Reason: FLUSH AFTER USING IV ACCESS Last Admin: 10/29/18 09:04 Dose: 2 ml Tamsulosin HCl (Flomax) 0.4 mg PO DAILY [facility] Last Admin: 10/29/18 09:04 Dose: 0.4 mg <Mee Le - Last Filed: 10/29/18 12:53> Active Medications: Active Medications Hydrocodone Bitart/Acetaminophen ([place] 5/325) 1 tab PO Q4H PRN PRN Reason: pain 4-10 Last Admin: 10/30/18 13:46 Dose: 1 tab Al Hydroxide/Mg Hydroxide (Milk Of Magnesia Liq) 30 ml PO Q12H PRN PRN Reason: Mild Constipation Last Admin: 10/27/18 15:33 Dose: 30 ml Flumazenil (Romazicon Inj) 0.2 mg IV.PUSH Q1M PRN PRN Reason: OVERSEDATION Haloperidol Lactate (Haldol Inj) 1 mg IV.PUSH Q15M PRN PRN Reason: for severe agitation Hydromorphone HCl (Dilaudid Pf Inj) 0.1 mg IV.PUSH Q6H PRN PRN Reason: breakthrough pain Sodium Chloride (Ns Inj) 1,000 mls @ 200 mls/hr IV.CONT .Q5H [facility] Last Admin: 10/30/18 09:53 Dose: 200 mls/hr Thiamine HCl 100 mg/ Sodium (Chloride) 101 mls @ 100 mls/hr IV.SIG DAILY [facility] Last Infusion: 10/30/18 10:20 Dose: Infused Piperacillin/Tazobactam/Dextrose (Zosyn 4.5 Gm Premix) 4.5 gm in 100 mls @ 200 mls/hr IV.SIG Q6H [facility] Last Infusion: 10/30/18 10:51 Dose: Infused Vancomycin HCl 1,250 mg/ (Sodium Chloride) 262.5 mls @ 250 mls/hr IV.SIG Q12H [facility] Last Admin: 10/30/18 13:45 Dose: 250 mls/hr Lorazepam (Ativan Inj) 1 mg IV.PUSH Q8H PRN PRN Reason: ANXIETY Last Admin: 10/28/18 23:49 Dose: 1 mg Lorazepam (Ativan) 1 mg PO Q4H PRN PRN Reason: for CIWA 8-10 Lorazepam (Ativan) 2 mg PO Q2H PRN PRN Reason: for CIWA 11-14 Lorazepam (Ativan Inj) 2 mg IV.PUSH Q2H PRN PRN Reason: for CIWA 11-14 Lorazepam (Ativan Inj) 2 mg IV.PUSH Q1H PRN PRN Reason: for CIWA 15-20 Lorazepam (Ativan Inj) 2 mg IV.PUSH Q15M PRN PRN Reason: for CIWA > 20 Lorazepam (Ativan Inj) 1 mg IV.PUSH Q4H PRN PRN Reason: for CIWA 8-10 Miscellaneous Information ([facility] Ordered Lab Info) 0 each OTHER ONCE ONE Stop: 10/31/18 09:46 Ondansetron HCl (Zofran Inj) 4 mg IV.PUSH Q6H PRN PRN Reason: NAUSEA OR VOMITING Last Admin: 10/29/18 16:53 Dose: 4 mg Pharmacy Profile Note (Vancomycin Consult Pharmacy) 1 each OTHER UNSCH PRN PRN Reason: Pharmacy to dose Simethicone (Phazyme Chew) 125 mg PO TID PRN PRN Reason: GAS RETENTION Last Admin: 10/28/18 04:53 Dose: 125 mg Sodium Chloride (Ns Flush) 2 ml IV.FLUSH BID SYLVIA Last Admin: 10/30/18 08:28 Dose: Not Given Sodium Chloride (Ns Flush) 2 ml IV.FLUSH PRN PRN PRN Reason: FLUSH AFTER USING IV ACCESS Last Admin: 10/29/18 09:04 Dose: 2 ml Tamsulosin HCl (Flomax) 0.4 mg PO DAILY [facility] Last Admin: 10/30/18 08:27 Dose: 0.4 mg <Clarice Mayen A - Last Filed: 10/30/18 15:03> Allergies Allergy/AdvReac Type Severity Reaction Status Date / Time No Known Allergies Allergy Verified 10/26/18 16:04 Home Medications Medication Instructions Recorded Confirmed Type amoxicillin-pot clavulanate 1 tab PO BID 10/26/18 10/26/18 History [Augmentin] prednisone 60 mg PO DAILY 10/26/18 10/26/18 History Exam Vital signs: Vital Signs 10/28/18 16:00 10/28/18 20:00 10/29/18 00:00 Temperature 98 F 99.6 F 97.2 F L Pulse Rate 128 H 137 H 129 H Respiratory Rate 26 H 24 26 H Blood Pressure 149/65 H 134/72 132/66 Pulse Oximetry 93 L 91 L 97 10/29/18 04:00 10/29/18 08:00 10/29/18 08:22 Temperature 100.4 F H 97.9 F Pulse Rate 126 H 116 H Respiratory Rate 24 16 28 H Blood Pressure 119/61 134/61 Pulse Oximetry 96 93 L 10/29/18 10:51 10/29/18 12:00 Temperature 98.2 F Pulse Rate 114 H Respiratory Rate 25 H 16 Blood Pressure 113/58 L Pulse Oximetry 94 L Intake & Output 10/28/18 10/29/18 10/29/18 18:59 06:59 18:59 Intake Total 2101 / 2101 2702.5 / 2702.5 1463.5 / 1463.5 Output Total 820 / 820 1100 / 1100 Balance 1281 / 1281 1602.5 / 1602.5 1463.5 / 1463.5 Intake: IV 2101 / 2101 2462.5 / 2462.5 1463.5 / 1463.5 NS Inj 1,000 ML @ 200 mls/hr IV 1999 / 1999 1999 / 1999 1000 / 1000 .CONT .Q5H [facility] Rx#:[id number] Zosyn 4.5 GM Premix 4.5 gm In 200 / 200 100 / 100 100 ml @ 200 mls/hr IV.SIG Q6H [facility] Rx#:[id number] Thiamine Inj 100 MG In NS Inj 101 / 101 101 / 101 100 ML @ 100 mls/hr IV.SIG DAILY [facility] Rx#:[id number] Vancomycin Inj 1,250 MG In NS 262.5 / 262.5 262.5 / 262.5 Inj 250 ML @ 250 mls/hr IV.SIG Q12H [facility] Rx#:[id number] Oral 240 / 240 Output: Urine 820 / 820 Urine Amount (Catheter) 1100 / 1100 Indwelling Urethral Catheter 1100 / 1100 Other: Date of Last Bowel Movement 10/25/18 10/25/18 10/28/18 - Constitutional mild distress, obese, cooperative Comments: Patient rates abdominal pain at 5 out of 10 - Routine HEENT Exam Head: Present: normocephalic Eye: Present: conjunctival icterus - Routine Neck Exam Present: supple, trachea midline - Routine Respiratory Exam Present: CTA bilaterally. Absent: accessory muscle use - Routine Cardiovascular Exam Present: RRR - Routine Abdominal Exam Present: soft, normoactive bowel sounds, distended. Absent: guarding, surgical scars Comments: Abdomen distended with distant bowel sounds present - Routine Extremities Exam Present: pulses intact. Absent: edema - Routine Skin Exam Present: dry, warm - Routine Psychiatric Exam Present: cooperative <LeMee - Last Filed: 10/29/18 12:53> Vital signs: Vital Signs 10/29/18 16:00 10/29/18 17:15 10/29/18 20:00 Temperature 98.2 F 98.5 F Pulse Rate 124 H 124 H Respiratory Rate 18 24 19 Blood Pressure 165/78 H 131/84 Pulse Oximetry 92 L 93 L 10/29/18 21:08 10/30/18 00:00 10/30/18 00:25 Temperature 97.9 F Pulse Rate 125 H 140 H Respiratory Rate 20 19 Blood Pressure 138/84 Pulse Oximetry 93 L 10/30/18 01:27 10/30/18 04:00 10/30/18 05:14 Temperature 98.0 F Pulse Rate 143 H Respiratory Rate 18 19 18 Blood Pressure 132/78 Pulse Oximetry 93 L 10/30/18 08:00 10/30/18 12:00 Temperature 98.5 F 98.0 F Pulse Rate 115 H 120 H Respiratory Rate 19 19 Blood Pressure 131/56 L 157/93 H Pulse Oximetry 95 94 L Intake & Output 10/29/18 10/30/18 10/30/18 18:59 06:59 18:59 Intake Total 2563.5 / 2563.5 2642.5 / 2642.5 1201 / 1201 Output Total 1100 / 1100 1550 / 1550 Balance 1463.5 / 1463.5 1092.5 / 1092.5 1201 / 1201 Weight 92.9 kg Intake: IV 2563.5 / 2563.5 2462.5 / 2462.5 1201 / 1201 NS Inj 1,000 ML @ 200 mls/hr IV 1999 / 1999 2000 / 2000 1000 / 1000 .CONT .Q5H [facility] Rx#:[id number] Zosyn 4.5 GM Premix 4.5 gm In 200 / 200 200 / 200 100 / 100 100 ml @ 200 mls/hr IV.SIG Q6H [facility] Rx#:[id number] Thiamine Inj 100 MG In NS Inj 101 / 101 101 / 101 100 ML @ 100 mls/hr IV.SIG DAILY [facility] Rx#:[id number] Vancomycin Inj 1,250 MG In NS 262.5 / 262.5 262.5 / 262.5 Inj 250 ML @ 250 mls/hr IV.SIG Q12H [facility] Rx#:[id number] Oral 0 / 0 180 / 180 Output: Urine 1100 / 1100 Urine Amount (Catheter) 1550 / 1550 Indwelling Urethral Catheter 1550 / 1550 Other: Date of Last Bowel Movement 10/28/18 10/28/18 # Bowel Movements 0 <Clarice Mayen A - Last Filed: 10/30/18 15:03> Results - Labs CBC & Chem 7: 10/29/18 05:40 10/29/18 05:40 Labs: Laboratory Results - last 24 hr 10/29/18 10/29/18 10/29/18 05:40 05:40 05:40 WBC 13.1 H RBC 4.57 Hgb 14.0 Hct 40.8 MCV 89.3 MCH 30.7 MCHC 34.4 RDW 15.3 Plt Count 171 MPV 8.0 Neut % (Auto) 80.9 H Lymph % (Auto) 8.3 L [place] % (Auto) 10.4 H Eos % (Auto) 0.3 Baso % (Auto) 0.1 Neut # (Auto) 10.6 H Lymph # (Auto) 1.1 [place] # (Auto) 1.4 H Eos # (Auto) 0.0 Baso # (Auto) 0.0 WBC Differential . Differential Comment Auto diff final Sodium 135 L Potassium 4.1 Chloride 104 Carbon Dioxide 22.9 Anion Gap 8 BUN 17 Creatinine 1.34 H Estimated GFR 59 L Random Glucose 140 H Lactic Acid 2.3 H Calcium 7.6 L Lipase 2449 H <Mee Le - Last Filed: 10/29/18 12:53> - Labs CBC & Chem 7: 10/30/18 05:56 10/29/18 05:40 Labs: Laboratory Results - last 24 hr 10/30/18 10/30/18 05:56 14:00 WBC 12.9 H RBC 4.24 L Hgb 12.9 L Hct 37.8 L MCV 89.2 MCH 30.5 MCHC 34.2 RDW 15.6 Plt Count 200 MPV 8.0 Prelim Diff (Auto) Slide review pending Neut % (Auto) 80.0 H Lymph % (Auto) 7.9 L [place] % (Auto) 11.3 H Eos % (Auto) 0.5 Baso % (Auto) 0.3 Neut # (Auto) 10.3 H Lymph # (Auto) 1.0 [place] # (Auto) 1.5 H Eos # (Auto) 0.1 Baso # (Auto) 0.0 WBC Differential Manual diff final Seg Neuts % (Manual) 66 Band Neuts % (Manual) 17 H Lymphocytes % (Manual) 5 L Monocytes % (Manual) 10 H Metamyelocytes % (Man) 2 H Abs Neuts (Manual) 11.0 H Differential Comment . Dohle Bodies Present H Platelet Estimate Normal Platelet Morphology Normal RBC Morphology Normal Vancomycin Trough 5.9 <Clarice Mayen A - Last Filed: 10/30/18 15:03> Assessment and Plan (1) Acute pancreatitis Status: Acute Code(s): K85.90 - Acute pancreatitis without necrosis or infection, unspecified - Plan This patient is a 38-year-old male with past medical history significant for obesity. Patient also endorses recent cough with generalized body aches and severe abdominal pain. Upon consultation, patient endorses that he has had a dry cough for 3 weeks. States he was recently treated for upper respiratory infection with amoxicillin. Patient states he has had one to 2 weeks of abdominal pain which he describes as sharp and shooting across upper abdomen with abdominal bloating. Patient denies any nausea or vomiting. States pain alleviated by administered pain medication and aggravated by movement. Presently tolerating clear liquid diet without any complaints. Patient denies any history of EGD or colonoscopy in the past. Of note, patient does endorse drinking 2-3 shots of vodka "a few times daily". Patient denies any use of tobacco products. Denies any known family history of gastrointestinal disorders. Patient denies any symptoms of acid reflux, difficulty swallowing. States he normally has a bowel movement every 1-2 days formed and brown without any noted bleeding. Our service has been consulted to evaluate patient for pancreatitis. Pancreatitis Patient endorses 2 weeks of sharp upper abdominal pain. Denies radiation of pain. Endorses drinking 2-3 shots of vodka daily. 10/26/2018 CT abdomen and pelvis reveal the following: . Prominent diffuse peripancreatic edema indicating acute pancreatitis. No areas of nonenhancing pancreatic necrosis or organized fluid collections identified. Hepatic steatosis. 10/28/2018 KUB:Examination of the abdomen demonstrates a nasogastric tube with the tip in the left upper quadrant at the duodenal jejunal junction. The stomach is decompressed. Gas-filled loops of nondilated large and small bowel noted within the upper abdomen. 10/28/2018 CTA abdomen and pelvis: Although the SKYLER is occluded the celiac and SMA are widely patent. The SKYLER occlusion is clinically insignificant. Changes consistent with acute pancreatitis. No pseudocyst observed. Small volume ascites. Bilateral pleural effusions with bibasilar consolidations likely relating to atelectasis. -WBC 13.1 hemoglobin 14.0 hematocrit 40.8 -Lipase 2449 trending down -(10/27/18) triglycerides 256 cholesterol 217 LDL cholesterol 122 HDL 44.2 ratio 4.9 Plan -Clear liquid diet -Monitor labs-close attention to lipase and liver function tests -Continue IV hydration -Analgesics and antiemetics as per attending -Bowel regimen -Continue IV antibiotics -Alcohol cessation discussed -Supportive care This patient has been seen by myself and Dr. Mayen and this note is written on his behalf - Attending Attestation Dr. Mayen <Mee Le - Last Filed: 10/29/18 12:53> (1) Acute pancreatitis Status: Acute Code(s): K85.90 - Acute pancreatitis without necrosis or infection, unspecified - Attending Attestation Agree with above assessment and plan . Will follow up with you. Thank you for the consult. <Clarice Mayen - Last Filed: 10/30/18 15:03> <Mee Le - Last Filed: 10/29/18 12:53> (1) Acute pancreatitis Qualifiers: Pancreatitis type: unspecified pancreatitis type Acute pancreatitis complication: unspecified Qualified Code(s): K85.90 - Acute pancreatitis without necrosis or infection, unspecified <Clarice Mayen - Last Filed: 10/30/18 15:03> (1) Acute pancreatitis Qualifiers: Pancreatitis type: unspecified pancreatitis type Acute pancreatitis complication: unspecified Qualified Code(s): K85.90 - Acute pancreatitis without necrosis or infection, unspecified
--- NOTE | 2018-10-29 13:10 | P.PN ---
Subjective Interval history: cpomplains of epigastric /abdominal pain burping a lot, feels bloated no flatus, had urinary retention- mills inserted on admission Physical Exam Vital signs: Vital Signs 10/28/18 16:00 10/28/18 20:00 10/29/18 00:00 Temperature 98 F 99.6 F 97.2 F L Pulse Rate 128 H 137 H 129 H Respiratory Rate 26 H 24 26 H Blood Pressure 149/65 H 134/72 132/66 Pulse Oximetry 93 L 91 L 97 10/29/18 04:00 10/29/18 08:00 10/29/18 08:22 Temperature 100.4 F H 97.9 F Pulse Rate 126 H 116 H Respiratory Rate 24 16 28 H Blood Pressure 119/61 134/61 Pulse Oximetry 96 93 L 10/29/18 10:51 10/29/18 12:00 Temperature 98.2 F Pulse Rate 114 H Respiratory Rate 25 H 16 Blood Pressure 113/58 L Pulse Oximetry 94 L Intake & Output 10/28/18 10/29/18 10/29/18 18:59 06:59 18:59 Intake Total 2101 / 2101 2702.5 / 2702.5 1463.5 / 1463.5 Output Total 820 / 820 1100 / 1100 Balance 1281 / 1281 1602.5 / 1602.5 1463.5 / 1463.5 Intake: IV 2101 / 2101 2462.5 / 2462.5 1463.5 / 1463.5 NS Inj 1,000 ML @ 200 mls/hr IV 1999 / 1999 1999 / 1999 1000 / 1000 .CONT .Q5H [facility] Rx#:[id number] Zosyn 4.5 GM Premix 4.5 gm In 200 / 200 100 / 100 100 ml @ 200 mls/hr IV.SIG Q6H [facility] Rx#:[id number] Thiamine Inj 100 MG In NS Inj 101 / 101 101 / 101 100 ML @ 100 mls/hr IV.SIG DAILY [facility] Rx#:[id number] Vancomycin Inj 1,250 MG In NS 262.5 / 262.5 262.5 / 262.5 Inj 250 ML @ 250 mls/hr IV.SIG Q12H [facility] Rx#:[id number] Oral 240 / 240 Output: Urine 820 / 820 Urine Amount (Catheter) 1099 Indwelling Urethral Catheter 1100 / 1100 Other: Date of Last Bowel Movement 10/25/18 10/25/18 10/28/18 Narrative: GENERAL: awake and alert SKIN: Warm and dry. HEAD: Atraumatic. Normocephalic. EYES: Pupils equal and round. No scleral icterus. No injection or drainage. ENT: No nasal bleeding or discharge. Mucous membranes moist NECK: Trachea midline. No JVD. CARDIOVASCULAR: tachycardic RESPIRATORY: decreased Breath sounds equal bilaterally. GASTROINTESTINAL: Abdomen distended, tympanitic, absent bowel sound , + tenderenss on deep palaption mills in place MUSCULOSKELETAL: Extremities without clubbing, cyanosis, or edema. No obvious deformities. NEUROLOGICAL: Awake and alert. No obvious cranial nerve deficits. Generalized weakness moving all 4 extremities. Normal speech. PSYCHIATRIC: Flat mood and affect; insight and judgment normal. - Urinary Catheter Management Straight Cath placed during this visit: yes Urethral indwelling: No Reason for continuing: Acute urinary retention Insertion date: 10/28/18 Insertion time: 04:30 Indwelling Urethral Catheter Cath placed during this visit: yes Urethral indwelling: Yes Reason for continuing: Acute urinary retention Insertion date: 10/28/18 Insertion time: 04:30 Results - Labs CBC & Chem 7: 10/30/18 05:56 10/29/18 05:40 Laboratory Results - last 24 hr 10/29/18 10/29/18 10/29/18 05:40 05:40 05:40 WBC 13.1 H RBC 4.57 Hgb 14.0 Hct 40.8 MCV 89.3 MCH 30.7 MCHC 34.4 RDW 15.3 Plt Count 171 MPV 8.0 Neut % (Auto) 80.9 H Lymph % (Auto) 8.3 L [place] % (Auto) 10.4 H Eos % (Auto) 0.3 Baso % (Auto) 0.1 Neut # (Auto) 10.6 H Lymph # (Auto) 1.1 [place] # (Auto) 1.4 H Eos # (Auto) 0.0 Baso # (Auto) 0.0 WBC Differential . Differential Comment Auto diff final Sodium 135 L Potassium 4.1 Chloride 104 Carbon Dioxide 22.9 Anion Gap 8 BUN 17 Creatinine 1.34 H Estimated GFR 59 L Random Glucose 140 H Lactic Acid 2.3 H Calcium 7.6 L Lipase 2449 H Microbiology 10/28/18 16:25 Blood - Peripheral Aerobic Blood Culture - Preliminary No growth in 1 day 10/28/18 16:25 Blood - Peripheral Anaerobic Blood Culture - Preliminary No growth in 1 day 10/28/18 16:30 Blood - Peripheral Aerobic Blood Culture - Preliminary No growth in 1 day 10/28/18 16:30 Blood - Peripheral Anaerobic Blood Culture - Preliminary No growth in 1 day 10/28/18 23:48 Urine - Catheterized Urine Streptococcus pneumoniae Antigen ( M - Final Presumptive negative for streptococcus pneumoniae antigen, suggesting no current or recent infection. Infection due to Streptococcus pneumoniae cannot be ruled out since the antigen present in the sample may be below the detection limit of the test. 10/28/18 23:48 Urine - Catheterized Urine Legionella Antigen - Final Presumptive negative for Legionella pneumophila serogroup 1 antigen in urine, suggesting no recent or recurrent infection. Infection due to Legionella cannot be ruled out since other serogroups and species may cause disease, antigen may not be present in urine in early infection, and the level of antigen present in the urine may be below the detection limit of the test. Assessment and Plan - Plan 38-year-old male with a past medical history of obesity and recent cough presents to the ER with severe abdominal pain. Emergency room workup revealed a markedly elevated lipase level and CT confirmation of pancreatitis. Nurse reported that the mother confirmed he is an alcohol drinker, stated drinking more recently due to broke up with a girlfriend. Acute Severe pancreatitis- first episode Liver steatosis Constipation -drinks vodkas 3-4 3-4x a weeks- denies chronic alcohol use - CT- shows no biliary duct fdialation, no previous surgery, no gallstone , TG normal -DC morphine as patient says doesn't help, start norco pO per pain scale, add dilaudid IV for breakthrough pain -Monitor on telemetry for risk of bleeding -CT abd/Pelvis Chest: Prominent diffuse peripancreatic edema indicating acute pancreatitis. No areas of nonenhancing pancreatic necrosis or organized fluid collections identified. Hepatic steatosis -CTA Abd/Pevis: lthough the SKYLER is occluded the celiac and SMA are widely patent. The SKYLER occlusion is clinically insignificant. Changes consistent with acute pancreatitis. No pseudocyst observed. Small volume ascites. Bilateral pleural effusions with bibasilar consolidations likely relating to atelectasis -Lipase gradually trending dwon - continue IVF - GI consulted Possible sepsis/ SIRS With leukocytosis, tachycardia Severe lactic acidosis - states ewas really treated for URI- symptoms of cough- with Amoxycilln as OP - source likely upper respiratory infection versus GI, - acute kidney injury with elevated creatinine, lactic acidosis. -Trend lactic acid -continue Zosyn IV - ID consulted -Chest x-ray within normal limits - continue IVF Acute Urinary retention -Continue IV fluid -Continue Mills catheter -With daily Mills catheter care - urine for UA-with C&S negative - denies history of urinary problems before - started flomax -.4 mg - dc mills in 3 days - tomorrow Alcohol use - andreas MALAVE protocol -Ativan PRN -Continue thiamine DVT prophylaxis SCDs Progress Note: Quality VTE Deep Vein Thrombosis/Pulmonary Embolism Present on Admission: No
--- NOTE | 2018-10-29 17:53 | P.CONID ---
History of Present Illness Service: ID Consult date: 10/29/18 Requesting Physician: Lamar Morillo Reason for Consult: sepsis Primary Care Provider: No Primary Care Physician History of Present Illness: thi is a delayed note pt was seen yday around 1730 pt is a 38 yo male no ETOH admitted with severe abdominal pain CT w contrast cw pancreatitis, , no necrosis/ fluid collections WBC 24K earlier in admition , then down to 13 K, still a lot of bands unable to eat co severe 10/10 pain no fever On Piperacillin/Tazobactam + vancomycin started on 10/28 bnlood clx negative @ 2 days PMH: obesity PSH: denies Family hx: no contributory Socail: denies ETOH,tobacco or drugs Review of Systems All other systems reviewed negative except as stated in HPI PMFSH - History History Provided By: Patient - Tobacco History Second Hand Smoke Exposure: No Smoking Status: Never smoker - Alcohol History How Often Do You Have a Drink Containing Alcohol: 2 to 3 times a week - Substance Use History Substance History: No History of Abuse - Travel History Recent Travel in the [place] Within the Last 8 Weeks: No Recent Travel Out of the Country Within the Last 8 Weeks: No - Immunization History Tetanus Immunization: Unsure Hx Influenza Vaccine This Season: No Medications and Allergies Active Medications: Active Medications Hydrocodone Bitart/Acetaminophen ([place] 5/325) 1 tab PO Q4H PRN PRN Reason: pain 2-6 Hydrocodone Bitart/Acetaminophen ([place] 10/325) 1 tab PO Q4H PRN PRN Reason: pain 7-10 Last Admin: 10/29/18 16:44 Dose: 1 tab Al Hydroxide/Mg Hydroxide (Milk Of Radha Liq) 30 ml PO Q12H PRN PRN Reason: Mild Constipation Last Admin: 10/27/18 15:33 Dose: 30 ml Flumazenil (Romazicon Inj) 0.2 mg IV.PUSH Q1M PRN PRN Reason: OVERSEDATION Haloperidol Lactate (Haldol Inj) 1 mg IV.PUSH Q15M PRN PRN Reason: for severe agitation Hydromorphone HCl (Dilaudid Pf Inj) 0.2 mg IV.PUSH Q6H PRN PRN Reason: breakthrough pain Last Admin: 10/29/18 13:46 Dose: 0.2 mg Sodium Chloride (Ns Inj) 1,000 mls @ 200 mls/hr IV.CONT .Q5H [facility] Last Admin: 10/29/18 13:48 Dose: 200 mls/hr Thiamine HCl 100 mg/ Sodium (Chloride) 101 mls @ 100 mls/hr IV.SIG DAILY [facility] Last Infusion: 10/29/18 10:06 Dose: Infused Piperacillin/Tazobactam/Dextrose (Zosyn 4.5 Gm Premix) 4.5 gm in 100 mls @ 200 mls/hr IV.SIG Q6H [facility] Last Admin: 10/29/18 16:43 Dose: 200 mls/hr Vancomycin HCl 1,250 mg/ (Sodium Chloride) 262.5 mls @ 250 mls/hr IV.SIG Q12H [facility] Last Infusion: 10/29/18 12:20 Dose: Infused Lorazepam (Ativan Inj) 1 mg IV.PUSH Q8H PRN PRN Reason: ANXIETY Last Admin: 10/28/18 23:49 Dose: 1 mg Lorazepam (Ativan) 1 mg PO Q4H PRN PRN Reason: for CIWA 8-10 Lorazepam (Ativan) 2 mg PO Q2H PRN PRN Reason: for CIWA 11-14 Lorazepam (Ativan Inj) 2 mg IV.PUSH Q2H PRN PRN Reason: for CIWA 11-14 Lorazepam (Ativan Inj) 2 mg IV.PUSH Q1H PRN PRN Reason: for CIWA 15-20 Lorazepam (Ativan Inj) 2 mg IV.PUSH Q15M PRN PRN Reason: for CIWA > 20 Lorazepam (Ativan Inj) 1 mg IV.PUSH Q4H PRN PRN Reason: for CIWA 8-10 Miscellaneous Information ([facility] Ordered Lab Info) 0 each OTHER ONCE ONE Stop: 10/30/18 09:46 Ondansetron HCl (Zofran Inj) 4 mg IV.PUSH Q6H PRN PRN Reason: NAUSEA OR VOMITING Last Admin: 10/29/18 16:53 Dose: 4 mg Pharmacy Profile Note (Vancomycin Consult Pharmacy) 1 each OTHER UNSCH PRN PRN Reason: Pharmacy to dose Simethicone (Phazyme Chew) 125 mg PO TID PRN PRN Reason: GAS RETENTION Last Admin: 10/28/18 04:53 Dose: 125 mg Sodium Chloride (Ns Flush) 2 ml IV.FLUSH BID [facility] Last Admin: 10/29/18 09:05 Dose: 2 ml Sodium Chloride (Ns Flush) 2 ml IV.FLUSH PRN PRN PRN Reason: FLUSH AFTER USING IV ACCESS Last Admin: 10/29/18 09:04 Dose: 2 ml Tamsulosin HCl (Flomax) 0.4 mg PO DAILY [facility] Last Admin: 10/29/18 09:04 Dose: 0.4 mg Allergies Allergy/AdvReac Type Severity Reaction Status Date / Time No Known Allergies Allergy Verified 10/26/18 16:04 Home Medications Medication Instructions Recorded Confirmed Type amoxicillin-pot clavulanate 1 tab PO BID 10/26/18 10/26/18 History [Augmentin] prednisone 60 mg PO DAILY 10/26/18 10/26/18 History Exam Vital signs: Vital Signs 10/28/18 20:00 10/29/18 00:00 10/29/18 04:00 Temperature 99.6 F 97.2 F L 100.4 F H Pulse Rate 137 H 129 H 126 H Respiratory Rate 24 26 H 24 Blood Pressure 134/72 132/66 119/61 Pulse Oximetry 91 L 97 96 10/29/18 08:00 10/29/18 08:22 10/29/18 10:51 Temperature 97.9 F Pulse Rate 116 H Respiratory Rate 16 28 H 25 H Blood Pressure 134/61 Pulse Oximetry 93 L 10/29/18 12:00 10/29/18 13:00 10/29/18 16:00 Temperature 98.2 F 98.2 F Pulse Rate 114 H 124 H Respiratory Rate 16 22 18 Blood Pressure 113/58 L 165/78 H Pulse Oximetry 94 L 92 L Intake & Output 10/28/18 10/29/18 10/29/18 18:59 06:59 18:59 Intake Total 210 / 2101 2702.5 / 2702.5 2463.5 / 2463.5 Output Total 820 / 820 1100 / 1100 Balance 1281 / 1281 1602.5 / 1602.5 2463.5 / 2463.5 Intake: IV 2100 / 2100 2462.5 / 2462.5 2463.5 / 2463.5 NS Inj 1,000 ML @ 200 mls/hr IV 1999 .CONT .Q5H [facility] Rx#:[id number] Zosyn 4.5 GM Premix 4.5 gm In 200 / 200 100 / 100 100 ml @ 200 mls/hr IV.SIG Q6H [facility] Rx#:[id number] Thiamine Inj 100 MG In NS Inj 101 / 101 101 / 101 100 ML @ 100 mls/hr IV.SIG DAILY [facility] Rx#:[id number] Vancomycin Inj 1,250 MG In NS 262.5 / 262.5 262.5 / 262.5 Inj 250 ML @ 250 mls/hr IV.SIG Q12H [facility] Rx#:[id number] Oral 240 / 240 Output: Urine 820 / 820 Urine Amount (Catheter) 1100 / 1100 Indwelling Urethral Catheter 1100 / 1100 Other: Date of Last Bowel Movement 10/25/18 10/25/18 10/28/18 - Constitutional moderate distress (pain), obese - Routine HEENT Exam Head: Present: normocephalic, atraumatic Eye: Present: EOMI, PERRL ENT: Present: mucous membranes moist, oropharynx clear - Routine Neck Exam Present: supple. Absent: JVD - Routine Respiratory Exam Present: decreased breath sounds, CTA bilaterally. Absent: accessory muscle use - Routine Cardiovascular Exam Present: RRR, S1, S2. Absent: murmur, gallop, rubs - Routine Abdominal Exam Present: soft, normoactive bowel sounds, tenderness, distended. Absent: organomegaly, mass - Routine Exam Comments: fpley in p;lace wi isabel urine - Routine Extremities Exam Absent: cyanosis, clubbing, edema - Routine Skin Exam Present: intact, dry. Absent: rash - Routine Neurological Exam Present: alert, oriented X3, CN II-XII intact. Absent: sensory deficit, motor deficit - Routine Psychiatric Exam Present: normal affect, cooperative Results - Labs CBC & Chem 7: 10/30/18 05:56 10/30/18 14:00 Labs: Laboratory Results - last 24 hr 10/29/18 10/29/18 10/29/18 05:40 05:40 05:40 WBC 13.1 H RBC 4.57 Hgb 14.0 Hct 40.8 MCV 89.3 MCH 30.7 MCHC 34.4 RDW 15.3 Plt Count 171 MPV 8.0 Neut % (Auto) 80.9 H Lymph % (Auto) 8.3 L [place] % (Auto) 10.4 H Eos % (Auto) 0.3 Baso % (Auto) 0.1 Neut # (Auto) 10.6 H Lymph # (Auto) 1.1 [place] # (Auto) 1.4 H Eos # (Auto) 0.0 Baso # (Auto) 0.0 WBC Differential . Differential Comment Auto diff final Sodium 135 L Potassium 4.1 Chloride 104 Carbon Dioxide 22.9 Anion Gap 8 BUN 17 Creatinine 1.34 H Estimated GFR 59 L Random Glucose 140 H Lactic Acid 2.3 H Calcium 7.6 L Lipase 2449 H - Imaging Abdomen/Pelvis CT 10/26/18 16:09 CONCLUSION: 1. Prominent diffuse peripancreatic edema indicating acute pancreatitis. No areas of nonenhancing pancreatic necrosis or organized fluid collections identified. 2. Hepatic steatosis. Chest X-Ray 10/26/18 16:09 CONCLUSION: No acute cardiopulmonary disease. Abdomen X-Ray 10/27/18 00:00 CONCLUSION: Radiographically benign abdomen without obstruction or pneumoperitoneum. Abdomen X-Ray 10/28/18 00:54 CONCLUSION: Tip of the NG tube at the duodenal jejunal junction. Abdomen/Pelvis CTA 10/28/18 04:39 CONCLUSION: 1. Although the SKYLER is occluded the celiac and SMA are widely patent. The SKYLER occlusion is clinically insignificant. 2. Changes consistent with acute pancreatitis. No pseudocyst observed. 3. Small volume ascites. 4. Bilateral pleural effusions with bibasilar consolidations likely relating to atelectasis. Assessment and Plan - Plan pancreatitis SIRS No e/o necrosis or fluid collections dc abx fu clincially
[2018-10-30] MEDS: HYDROmorphone PF Inj 0.5 MG/0.5 ML Syringe IV.PUSH PRN ×2 (02:17→08:29)
[2018-10-30] MEDS: Sod Chloride 0.9% Inj 1,000 ML IV.CONT SCH ×4 (02:22→15:21)
[2018-10-30] MEDS: Piperacil/Tazo 4.5 GM Premix 4.5 GM/100 ML BAG IV.SIG SCH ×3 (03:46→17:35)
[2018-10-30 07:08] LABS: Baso % (Auto) 0.3 % (0.0-2.0); Eos # (Auto) 0.1 th/mm3 (0.0-0.4); Eos % (Auto) 0.5 % (0.0-4.0); Hematocrit 37.8 % (39.0-51.0); Hemoglobin 12.9 gm/dL (13.0-17.0); Lymph % (Auto) 7.9 % (9.0-44.0); Mean Corpuscular HGB Conc 34.2 % (32.0-36.0); Mean Corpuscular Hemoglobin 30.5 pg (27.0-34.0); Mean Corpuscular Volume 89.2 fL (80.0-100.0); Mono # (Auto) 1.5 th/mm3 (0.0-0.9); Mono % (Auto) 11.3 % (0.0-8.0); Neut # (Auto) 10.3 th/mm3 (1.8-7.7); Platelet Count 200 th/mm3 (150-450); Red Blood Count 4.24 mil/mm3 (4.50-5.90); Red Cell Distribution Width 15.6 % (11.6-17.2); White Blood Count 12.9 th/mm3 (4.0-11.0)
[2018-10-30 08:19] LABS: Lymphocytes 5 % (9-44); Metamyelocytes 2 % (0-1); Monocytes 10 % (0-8)
[2018-10-30 08:20] LABS: Dohle Bodies Present; Platelet Estimate Normal (Normal); Platelet Morphology Normal (Normal); RBC Morphology Normal (Normal)
[2018-10-30] MEDS: Thiamine Inj 100 MG in Sodium Chlor 0.9% Inj 100 ML IV.SIG SCH (08:27)
[2018-10-30] MEDS ORDERED: Influenza (Quadrivalent) Vaccine 0.5 ML Syringe IM ONE (09:00)
--- NOTE | 2018-10-30 09:41 | P.PN ---
Subjective Interval history: d/w with staff nurse- patient asking for pain meds and when she gets back - patient is sleeping tolerating current diet appears comfortab;e had a BM today Physical Exam Vital signs: Vital Signs 10/29/18 10:51 10/29/18 12:00 10/29/18 13:00 Temperature 98.2 F Pulse Rate 114 H Respiratory Rate 25 H 16 22 Blood Pressure 113/58 L Pulse Oximetry 94 L 10/29/18 14:20 10/29/18 16:00 10/29/18 17:15 Temperature 98.2 F Pulse Rate 124 H Respiratory Rate 22 18 24 Blood Pressure 165/78 H Pulse Oximetry 92 L 10/29/18 20:00 10/29/18 21:08 10/30/18 00:00 Temperature 98.5 F 97.9 F Pulse Rate 124 H 125 H Respiratory Rate 19 20 19 Blood Pressure 131/84 138/84 Pulse Oximetry 93 L 93 L 10/30/18 00:25 10/30/18 01:27 10/30/18 04:00 Temperature 98.0 F Pulse Rate 140 H 143 H Respiratory Rate 18 19 Blood Pressure 132/78 Pulse Oximetry 93 L 10/30/18 05:14 10/30/18 08:00 Temperature 98.5 F Pulse Rate 115 H Respiratory Rate 18 19 Blood Pressure 131/56 L Pulse Oximetry 95 Intake & Output 10/29/18 10/30/18 10/30/18 18:59 06:59 18:59 Intake Total 2563.5 / 2563.5 2642.5 / 2642.5 Output Total 1100 / 1100 1550 / 1550 Balance 1463.5 / 1463.5 1092.5 / 1092.5 Weight 92.9 kg Intake: IV 2563.5 / 2563.5 2462.5 / 2462.5 NS Inj 1,000 ML @ 200 mls/hr IV 1999 / 1999 1999 / 1999 .CONT .Q5H [facility] Rx#:[id number] Zosyn 4.5 GM Premix 4.5 gm In 200 / 200 200 / 200 100 ml @ 200 mls/hr IV.SIG Q6H [facility] Rx#:[id number] Thiamine Inj 100 MG In NS Inj 101 / 101 100 ML @ 100 mls/hr IV.SIG DAILY [facility] Rx#:[id number] Vancomycin Inj 1,250 MG In NS 262.5 / 262.5 262.5 / 262.5 Inj 250 ML @ 250 mls/hr IV.SIG Q12H [facility] Rx#:[id number] Oral 0 / 0 180 / 180 Output: Urine 1100 / 1100 Urine Amount (Catheter) 1550 / 1550 Indwelling Urethral Catheter 1550 / 1550 Other: Date of Last Bowel Movement 10/28/18 10/28/18 # Bowel Movements 0 Narrative: GENERAL: awake and alert SKIN: Warm and dry. HEAD: Atraumatic. Normocephalic. EYES: Pupils equal and round. No scleral icterus. No injection or drainage. ENT: No nasal bleeding or discharge. Mucous membranes moist NECK: Trachea midline. No JVD. CARDIOVASCULAR: regular RESPIRATORY: decreased Breath sounds equal bilaterally. GASTROINTESTINAL: Abdomen , soft, flobular, no guarding, + bowel sounds mills in place MUSCULOSKELETAL: Extremities without clubbing, cyanosis, or edema. No obvious deformities. NEUROLOGICAL: Awake and alert. No obvious cranial nerve deficits. Generalized weakness moving all 4 extremities. Normal speech. PSYCHIATRIC: Flat mood and affect; insight and judgment normal. - Urinary Catheter Management Straight Cath placed during this visit: yes Urethral indwelling: No Reason for continuing: Acute urinary retention Insertion date: 10/28/18 Insertion time: 04:30 Indwelling Urethral Catheter Cath placed during this visit: yes Urethral indwelling: Yes Reason for continuing: Acute urinary retention Insertion date: 10/28/18 Insertion time: 04:30 Results - Labs CBC & Chem 7: 10/30/18 05:56 10/30/18 14:00 Laboratory Results - last 24 hr 10/30/18 05:56 WBC 12.9 H RBC 4.24 L Hgb 12.9 L Hct 37.8 L MCV 89.2 MCH 30.5 MCHC 34.2 RDW 15.6 Plt Count 200 MPV 8.0 Prelim Diff (Auto) Slide review pending Neut % (Auto) 80.0 H Lymph % (Auto) 7.9 L [place] % (Auto) 11.3 H Eos % (Auto) 0.5 Baso % (Auto) 0.3 Neut # (Auto) 10.3 H Lymph # (Auto) 1.0 [place] # (Auto) 1.5 H Eos # (Auto) 0.1 Baso # (Auto) 0.0 WBC Differential Manual diff final Seg Neuts % (Manual) 66 Band Neuts % (Manual) 17 H Lymphocytes % (Manual) 5 L Monocytes % (Manual) 10 H Metamyelocytes % (Man) 2 H Abs Neuts (Manual) 11.0 H Differential Comment . Dohle Bodies Present H Platelet Estimate Normal Platelet Morphology Normal RBC Morphology Normal Microbiology 10/28/18 16:25 Blood - Peripheral Aerobic Blood Culture - Preliminary No growth in 1 day 10/28/18 16:25 Blood - Peripheral Anaerobic Blood Culture - Preliminary No growth in 1 day 10/28/18 16:30 Blood - Peripheral Aerobic Blood Culture - Preliminary No growth in 1 day 10/28/18 16:30 Blood - Peripheral Anaerobic Blood Culture - Preliminary No growth in 1 day 10/28/18 23:48 Urine - Catheterized Urine Streptococcus pneumoniae Antigen ( M - Final Presumptive negative for streptococcus pneumoniae antigen, suggesting no current or recent infection. Infection due to Streptococcus pneumoniae cannot be ruled out since the antigen present in the sample may be below the detection limit of the test. 10/28/18 23:48 Urine - Catheterized Urine Legionella Antigen - Final Presumptive negative for Legionella pneumophila serogroup 1 antigen in urine, suggesting no recent or recurrent infection. Infection due to Legionella cannot be ruled out since other serogroups and species may cause disease, antigen may not be present in urine in early infection, and the level of antigen present in the urine may be below the detection limit of the test. Assessment and Plan - Plan 38-year-old male with a past medical history of obesity and recent cough presents to the ER with severe abdominal pain. Emergency room workup revealed a markedly elevated lipase level and CT confirmation of pancreatitis. Nurse reported that the mother confirmed he is an alcohol drinker, stated drinking more recently due to broke up with a girlfriend. Acute Severe pancreatitis- first episode - lipase down Liver steatosis Constipation -drinks vodkas 3-4 3-4x a weeks- denies chronic alcohol use - CT- shows no biliary duct fdialation, no previous surgery, no gallstone , TG normal -DC morphine as patient says doesn't help, start norco pO per pain scale, add dilaudid IV for breakthrough pain -Monitor on telemetry for risk of bleeding -CT abd/Pelvis Chest: Prominent diffuse peripancreatic edema indicating acute pancreatitis. No areas of nonenhancing pancreatic necrosis or organized fluid collections identified. Hepatic steatosis -CTA Abd/Pevis: lthough the SKYLRE is occluded the celiac and SMA are widely patent. The SKYLER occlusion is clinically insignificant. Changes consistent with acute pancreatitis. No pseudocyst observed. Small volume ascites. Bilateral pleural effusions with bibasilar consolidations likely relating to atelectasis -Lipase now normal advance diet - continue IVF - GI consulted SIRS secondary to pancreatitis With leukocytosis, tachycardia Severe lactic acidosis - states ewas really treated for URI- symptoms of cough- with Amoxycilln as OP - source likely upper respiratory infection versus GI, - acute kidney injury with elevated creatinine, lactic acidosis. -Trend lactic acid -seen by ID- DC IV antibiotics -Chest x-ray within normal limits - continue IVF- decrease rate Acute Urinary retention- d/w him no history of retention or enlarged prostate- no hsitory of urinary frequency in the apat -Continue IV fluid -Dc mills today -With daily Mills catheter care - urine for UA-with C&S negative - denies history of urinary problems before - was started flomax -.4 mg - dc mills in 3 days - ago advise to patient to up and ambulate Alcohol use - andreas MALAVE protocol -Ativan PRN -Continue thiamine DVT prophylaxis SCDs Progress Note: Quality VTE Deep Vein Thrombosis/Pulmonary Embolism Present on Admission: No
[2018-10-30] MEDS ORDERED: Pharmacy Ordered Lab Info OTHER ONE (09:45)
[2018-10-30] MEDS ORDERED: HYDROmorphone PF Inj 0.5 MG/0.5 ML Syringe IV.PUSH PRN (11:00)
--- NOTE | 2018-10-30 12:34 | P.PNGI ---
Subjective Interval history: Patient standing in treatment room-about to ambulate to restroom Reports continued generalized abdominal pain Endorses urge to have bowel movement <Mee Le - Last Filed: 10/30/18 12:29> Physical Exam Vital signs: Vital Signs 10/29/18 13:00 10/29/18 14:20 10/29/18 16:00 Temperature 98.2 F Pulse Rate 124 H Respiratory Rate 22 22 18 Blood Pressure 165/78 H Pulse Oximetry 92 L 10/29/18 17:15 10/29/18 20:00 10/29/18 21:08 Temperature 98.5 F Pulse Rate 124 H Respiratory Rate 24 19 20 Blood Pressure 131/84 Pulse Oximetry 93 L 10/30/18 00:00 10/30/18 00:25 10/30/18 01:27 Temperature 97.9 F Pulse Rate 125 H 140 H Respiratory Rate 19 18 Blood Pressure 138/84 Pulse Oximetry 93 L 10/30/18 04:00 10/30/18 05:14 10/30/18 08:00 Temperature 98.0 F 98.5 F Pulse Rate 143 H 115 H Respiratory Rate 19 18 19 Blood Pressure 132/78 131/56 L Pulse Oximetry 93 L 95 Intake & Output 10/29/18 10/30/18 10/30/18 18:59 06:59 18:59 Intake Total 2563.5 / 2563.5 2642.5 / 2642.5 1201 / 1201 Output Total 1100 / 1100 1550 / 1550 Balance 1463.5 / 1463.5 1092.5 / 1092.5 1201 / 1201 Weight 92.9 kg Intake: IV 2563.5 / 2563.5 2462.5 / 2462.5 1201 / 1201 NS Inj 1,000 ML @ 200 mls/hr IV 1999 / 1999 2000 / 1999 1000 / 1000 .CONT .Q5H [facility] Rx#:[id number] Zosyn 4.5 GM Premix 4.5 gm In 200 / 200 200 / 200 100 / 100 100 ml @ 200 mls/hr IV.SIG Q6H [facility] Rx#:[id number] Thiamine Inj 100 MG In NS Inj 101 / 101 101 / 101 100 ML @ 100 mls/hr IV.SIG DAILY [facility] Rx#:[id number] Vancomycin Inj 1,250 MG In NS 262.5 / 262.5 262.5 / 262.5 Inj 250 ML @ 250 mls/hr IV.SIG Q12H [facility] Rx#:[id number] Oral 0 / 0 180 / 180 Output: Urine 1100 / 1100 Urine Amount (Catheter) 1550 / 1550 Indwelling Urethral Catheter 1550 / 1550 Other: Date of Last Bowel Movement 10/28/18 10/28/18 # Bowel Movements 0 - Constitutional no acute distress - Routine HEENT Exam Head: Present: normocephalic - Routine Respiratory Exam Absent: accessory muscle use - Routine Abdominal Exam Present: soft, normoactive bowel sounds, distended - Routine Extremities Exam Absent: edema - Routine Skin Exam Present: dry, warm - Routine Neurological Exam Present: alert - Urinary Catheter Management Straight Cath placed during this visit: yes Urethral indwelling: No Reason for continuing: Acute urinary retention Insertion date: 10/28/18 Insertion time: 04:30 Indwelling Urethral Catheter Cath placed during this visit: yes Urethral indwelling: Yes Reason for continuing: Acute urinary retention Insertion date: 10/28/18 Insertion time: 04:30 <Mee Le - Last Filed: 10/30/18 12:29> Vital signs: Vital Signs 10/29/18 16:00 10/29/18 17:15 10/29/18 20:00 Temperature 98.2 F 98.5 F Pulse Rate 124 H 124 H Respiratory Rate 18 24 19 Blood Pressure 165/78 H 131/84 Pulse Oximetry 92 L 93 L 10/29/18 21:08 10/30/18 00:00 10/30/18 00:25 Temperature 97.9 F Pulse Rate 125 H 140 H Respiratory Rate 20 19 Blood Pressure 138/84 Pulse Oximetry 93 L 10/30/18 01:27 10/30/18 04:00 10/30/18 05:14 Temperature 98.0 F Pulse Rate 143 H Respiratory Rate 18 19 18 Blood Pressure 132/78 Pulse Oximetry 93 L 10/30/18 08:00 10/30/18 12:00 Temperature 98.5 F 98.0 F Pulse Rate 115 H 120 H Respiratory Rate 19 19 Blood Pressure 131/56 L 157/93 H Pulse Oximetry 95 94 L Intake & Output 10/29/18 10/30/18 10/30/18 18:59 06:59 18:59 Intake Total 2563.5 / 2563.5 2642.5 / 2642.5 1201 / 1201 Output Total 1100 / 1100 1550 / 1550 Balance 1463.5 / 1463.5 1092.5 / 1092.5 1201 / 1201 Weight 92.9 kg Intake: IV 2563.5 / 2563.5 2462.5 / 2462.5 1201 / 1201 NS Inj 1,000 ML @ 200 mls/hr IV 1999 / 1999 2000 / 1999 1000 / 1000 .CONT .Q5H [facility] Rx#:[id number] Zosyn 4.5 GM Premix 4.5 gm In 200 / 200 200 / 200 100 / 100 100 ml @ 200 mls/hr IV.SIG Q6H [facility] Rx#:[id number] Thiamine Inj 100 MG In NS Inj 101 / 101 101 / 101 100 ML @ 100 mls/hr IV.SIG DAILY [facility] Rx#:[id number] Vancomycin Inj 1,250 MG In NS 262.5 / 262.5 262.5 / 262.5 Inj 250 ML @ 250 mls/hr IV.SIG Q12H [facility] Rx#:[id number] Oral 0 / 0 180 / 180 Output: Urine 1100 / 1100 Urine Amount (Catheter) 1550 / 1550 Indwelling Urethral Catheter 1550 / 1550 Other: Date of Last Bowel Movement 10/28/18 10/28/18 # Bowel Movements 0 - Urinary Catheter Management Straight Cath placed during this visit: no Indwelling Urethral Catheter Cath placed during this visit: no <Clarice Mayen - Last Filed: 10/30/18 15:14> Results - Labs CBC & Chem 7: 10/30/18 05:56 10/29/18 05:40 Laboratory Results - last 24 hr 10/30/18 05:56 WBC 12.9 H RBC 4.24 L Hgb 12.9 L Hct 37.8 L MCV 89.2 MCH 30.5 MCHC 34.2 RDW 15.6 Plt Count 200 MPV 8.0 Prelim Diff (Auto) Slide review pending Neut % (Auto) 80.0 H Lymph % (Auto) 7.9 L Stoddard % (Auto) 11.3 H Eos % (Auto) 0.5 Baso % (Auto) 0.3 Neut # (Auto) 10.3 H Lymph # (Auto) 1.0 [place]ard # (Auto) 1.5 H Eos # (Auto) 0.1 Baso # (Auto) 0.0 WBC Differential Manual diff final Seg Neuts % (Manual) 66 Band Neuts % (Manual) 17 H Lymphocytes % (Manual) 5 L Monocytes % (Manual) 10 H Metamyelocytes % (Man) 2 H Abs Neuts (Manual) 11.0 H Differential Comment . Dohle Bodies Present H Platelet Estimate Normal Platelet Morphology Normal RBC Morphology Normal Microbiology 10/28/18 16:25 Blood - Peripheral Aerobic Blood Culture - Preliminary No growth in 2 days 10/28/18 16:25 Blood - Peripheral Anaerobic Blood Culture - Preliminary No growth in 2 days 10/28/18 16:30 Blood - Peripheral Aerobic Blood Culture - Preliminary No growth in 2 days 10/28/18 16:30 Blood - Peripheral Anaerobic Blood Culture - Preliminary No growth in 2 days 10/28/18 23:48 Urine - Catheterized Urine Streptococcus pneumoniae Antigen ( M - Final Presumptive negative for streptococcus pneumoniae antigen, suggesting no current or recent infection. Infection due to Streptococcus pneumoniae cannot be ruled out since the antigen present in the sample may be below the detection limit of the test. 10/28/18 23:48 Urine - Catheterized Urine Legionella Antigen - Final Presumptive negative for Legionella pneumophila serogroup 1 antigen in urine, suggesting no recent or recurrent infection. Infection due to Legionella cannot be ruled out since other serogroups and species may cause disease, antigen may not be present in urine in early infection, and the level of antigen present in the urine may be below the detection limit of the test. <Mee Le - Last Filed: 10/30/18 12:29> - Labs CBC & Chem 7: 10/30/18 05:56 10/29/18 05:40 Laboratory Results - last 24 hr 10/30/18 10/30/18 05:56 14:00 WBC 12.9 H RBC 4.24 L Hgb 12.9 L Hct 37.8 L MCV 89.2 MCH 30.5 MCHC 34.2 RDW 15.6 Plt Count 200 MPV 8.0 Prelim Diff (Auto) Slide review pending Neut % (Auto) 80.0 H Lymph % (Auto) 7.9 L Stoddard % (Auto) 11.3 H Eos % (Auto) 0.5 Baso % (Auto) 0.3 Neut # (Auto) 10.3 H Lymph # (Auto) 1.0 Stoddard # (Auto) 1.5 H Eos # (Auto) 0.1 Baso # (Auto) 0.0 WBC Differential Manual diff final Seg Neuts % (Manual) 66 Band Neuts % (Manual) 17 H Lymphocytes % (Manual) 5 L Monocytes % (Manual) 10 H Metamyelocytes % (Man) 2 H Abs Neuts (Manual) 11.0 H Differential Comment . Dohle Bodies Present H Platelet Estimate Normal Platelet Morphology Normal RBC Morphology Normal Vancomycin Trough 5.9 Microbiology 10/28/18 16:25 Blood - Peripheral Aerobic Blood Culture - Preliminary No growth in 2 days 10/28/18 16:25 Blood - Peripheral Anaerobic Blood Culture - Preliminary No growth in 2 days 10/28/18 16:30 Blood - Peripheral Aerobic Blood Culture - Preliminary No growth in 2 days 10/28/18 16:30 Blood - Peripheral Anaerobic Blood Culture - Preliminary No growth in 2 days <Clarice Mayen - Last Filed: 10/30/18 15:14> Assessment and Plan (1) Acute pancreatitis Status: Acute Code(s): K85.90 - Acute pancreatitis without necrosis or infection, unspecified - Plan This patient is a 38-year-old male with past medical history significant for obesity. Patient also endorses recent cough with generalized body aches and severe abdominal pain. Upon consultation, patient endorses that he has had a dry cough for 3 weeks. States he was recently treated for upper respiratory infection with amoxicillin. Patient states he has had one to 2 weeks of abdominal pain which he describes as sharp and shooting across upper abdomen with abdominal bloating. Patient denies any nausea or vomiting. States pain alleviated by administered pain medication and aggravated by movement. Presently tolerating clear liquid diet without any complaints. Patient denies any history of EGD or colonoscopy in the past. Of note, patient does endorse drinking 2-3 shots of vodka "a few times daily". Patient denies any use of tobacco products. Denies any known family history of gastrointestinal disorders. Patient denies any symptoms of acid reflux, difficulty swallowing. States he normally has a bowel movement every 1-2 days formed and brown without any noted bleeding. Our service has been consulted to evaluate patient for pancreatitis. Pancreatitis Patient endorses 2 weeks of sharp upper abdominal pain. Denies radiation of pain. Endorses drinking 2-3 shots of vodka daily. 10/26/2018 CT abdomen and pelvis reveal the following: . Prominent diffuse peripancreatic edema indicating acute pancreatitis. No areas of nonenhancing pancreatic necrosis or organized fluid collections identified. Hepatic steatosis. 10/28/2018 KUB:Examination of the abdomen demonstrates a nasogastric tube with the tip in the left upper quadrant at the duodenal jejunal junction. The stomach is decompressed. Gas-filled loops of nondilated large and small bowel noted within the upper abdomen. 10/28/2018 CTA abdomen and pelvis: Although the SKYLER is occluded the celiac and SMA are widely patent. The SKYLER occlusion is clinically insignificant. Changes consistent with acute pancreatitis. No pseudocyst observed. Small volume ascites. Bilateral pleural effusions with bibasilar consolidations likely relating to atelectasis. -WBC 13.1 hemoglobin 14.0 hematocrit 40.8 -Lipase 2449 trending down -(10/27/18) triglycerides 256 cholesterol 217 LDL cholesterol 122 HDL 44.2 ratio 4.9 10/30/2018 Pancreatitis Patient endorses continued generalized abdominal pain No reported nausea or vomiting WBC 12.9 trending down hemoglobin 12.9 hematocrit 37.8 Lipase pending Plan -Clear liquid diet -Continue monitor labs-close attention to lipase and liver function tests -Continue IV hydration -Analgesics and antiemetics as per attending -Bowel regimen -Continue IV antibiotics -Supportive care This patient has been seen by myself and Dr. Mayen and this note is written on his behalf - Attending Attestation Dr. Mayen <Mee Le - Last Filed: 10/30/18 12:29> (1) Acute pancreatitis Status: Acute Code(s): K85.90 - Acute pancreatitis without necrosis or infection, unspecified - Attending Attestation Agree with above assessment and plan. Will follow up with you. <Clarice Mayen - Last Filed: 10/30/18 15:14> <Mee Le - Last Filed: 10/30/18 12:29> (1) Acute pancreatitis Qualifiers: Pancreatitis type: unspecified pancreatitis type Acute pancreatitis complication: unspecified Qualified Code(s): K85.90 - Acute pancreatitis without necrosis or infection, unspecified <Clarice Mayen - Last Filed: 10/30/18 15:14> (1) Acute pancreatitis Qualifiers: Pancreatitis type: unspecified pancreatitis type Acute pancreatitis complication: unspecified Qualified Code(s): K85.90 - Acute pancreatitis without necrosis or infection, unspecified
[2018-10-30] MEDS: Vancomycin Inj 1,250 MG in Sodium Chlor 0.9% Inj 250 ML IV.SIG SCH (13:45)
[2018-10-30 14:47] LABS: Vancomycin,Trough 5.9 mcg/mL (5.0-10.0)
[2018-10-30 15:14] LABS: Calcium 8.3 mg/dL (8.5-10.1); Carbon Dioxide 26.1 meq/L (21.0-32.0); Potassium 3.4 meq/L (3.5-5.1)
[2018-10-31] MEDS ORDERED: Vancomycin Inj 1,250 MG in Sodium Chlor 0.9% Inj 250 ML IV.SIG SCH (00:30)
[2018-10-31] MEDS: Sod Chloride 0.9% Inj 1,000 ML IV.CONT SCH (04:42)
[2018-10-31 08:30] VITALS: RESP 20
[2018-10-31] MEDS: Thiamine Inj 100 MG in Sodium Chlor 0.9% Inj 100 ML IV.SIG SCH (10:23)
--- NOTE | 2018-10-31 11:32 | P.PNGI ---
Subjective Interval history: Patient resting soundly Awakens easily Denies abdominal pain nausea or vomiting. <Mee Le - Last Filed: 10/31/18 11:28> Physical Exam Vital signs: Vital Signs 10/30/18 12:00 10/30/18 16:00 10/30/18 20:00 Temperature 98.0 F 97.6 F 98.9 F Pulse Rate 120 H 65 120 H Respiratory Rate 19 18 18 Blood Pressure 157/93 H 151/79 H 133/65 Pulse Oximetry 94 L 99 93 L 10/30/18 22:03 10/30/18 22:50 10/30/18 23:42 Temperature Pulse Rate 123 H Respiratory Rate 18 18 Blood Pressure Pulse Oximetry 10/30/18 23:43 10/31/18 05:15 10/31/18 08:00 Temperature 99.0 F 97.9 F Pulse Rate 121 H 111 H Respiratory Rate 20 18 20 Blood Pressure 172/78 H 166/72 H Pulse Oximetry 96 98 Intake & Output 10/30/18 10/31/18 10/31/18 18:59 06:59 18:59 Intake Total 3113.5 / 3113.5 1100 / 1100 Output Total 1200 / 1200 Balance 1913.5 / 1913.5 1100 / 1100 Weight 93.6 kg Intake: IV 2213.5 / 2213.5 1100 / 1100 NS Inj 1,000 ML @ 70 mls/hr IV. 1750 / 1750 1000 / 1000 CONT .[id number] [facility] Rx#:[id number] Zosyn 4.5 GM Premix 4.5 gm In 100 / 100 100 / 100 100 ml @ 200 mls/hr IV.SIG Q6H [facility] Rx#:[id number] Thiamine Inj 100 MG In NS Inj 101 / 101 100 ML @ 100 mls/hr IV.SIG DAILY [facility] Rx#:[id number] Vancomycin Inj 1,250 MG In NS 262.5 / 262.5 Inj 250 ML @ 250 mls/hr IV.SIG Q12H [facility] Rx#:[id number] Oral Supplement 900 / 900 Output: Urine Amount (Catheter) 1200 / 1200 Indwelling Urethral Catheter 1200 / 1200 Other: # Voids 4 Date of Last Bowel Movement 10/30/18 10/30/18 10/30/18 # Bowel Movements 3 - Constitutional no acute distress, cooperative - Routine HEENT Exam Head: Present: normocephalic - Routine Respiratory Exam Present: CTA bilaterally - Routine Cardiovascular Exam Present: RRR - Routine Abdominal Exam Present: soft, normoactive bowel sounds. Absent: tenderness, guarding, firm - Routine Skin Exam Present: dry, warm - Routine Neurological Exam Present: alert - Routine Psychiatric Exam Present: normal affect - Urinary Catheter Management Straight Cath placed during this visit: yes Urethral indwelling: No Reason for continuing: Acute urinary retention Insertion date: 10/28/18 Insertion time: 04:30 Indwelling Urethral Catheter Cath placed during this visit: yes, but has since been removed by the nurse Urethral indwelling: Yes Reason for continuing: Acute urinary retention Insertion date: 10/28/18 Insertion time: 04:30 Removal date: 10/30/18 Removal time: 16:00 <Mee Le - Last Filed: 10/31/18 11:28> Vital signs: Vital Signs 10/30/18 16:00 10/30/18 20:00 10/30/18 22:03 Temperature 97.6 F 98.9 F Pulse Rate 65 120 H Respiratory Rate 18 18 18 Blood Pressure 151/79 H 133/65 Pulse Oximetry 99 93 L 10/30/18 22:50 10/30/18 23:42 10/30/18 23:43 Temperature 99.0 F Pulse Rate 123 H 121 H Respiratory Rate 18 20 Blood Pressure 172/78 H Pulse Oximetry 96 10/31/18 05:15 10/31/18 08:00 10/31/18 12:00 Temperature 97.9 F 98.1 F Pulse Rate 111 H 113 H Respiratory Rate 18 20 20 Blood Pressure 166/72 H 144/65 H Pulse Oximetry 98 99 Intake & Output 10/30/18 10/31/18 10/31/18 18:59 06:59 18:59 Intake Total 3113.5 / 3113.5 1100 / 1100 Output Total 1200 / 1200 Balance 1913.5 / 1913.5 1100 / 1100 Weight 93.6 kg Intake: IV 2213.5 / 2213.5 1100 / 1100 NS Inj 1,000 ML @ 70 mls/hr IV. 1750 / 1750 1000 / 1000 CONT .[id number] [facility] Rx#:[id number] Zosyn 4.5 GM Premix 4.5 gm In 100 / 100 100 / 100 100 ml @ 200 mls/hr IV.SIG Q6H [facility] Rx#:[id number] Thiamine Inj 100 MG In NS Inj 101 / 101 100 ML @ 100 mls/hr IV.SIG DAILY [facility] Rx#:[id number] Vancomycin Inj 1,250 MG In NS 262.5 / 262.5 Inj 250 ML @ 250 mls/hr IV.SIG Q12H [facility] Rx#:[id number] Oral Supplement 900 / 900 Output: Urine Amount (Catheter) 1200 / 1200 Indwelling Urethral Catheter 1200 / 1200 Other: # Voids 4 Date of Last Bowel Movement 10/30/18 10/30/18 10/30/18 # Bowel Movements 3 - Urinary Catheter Management Straight Cath placed during this visit: no Indwelling Urethral Catheter Cath placed during this visit: no <Clarice Mayen - Last Filed: 10/31/18 12:44> Results - Labs CBC & Chem 7: 10/30/18 05:56 10/30/18 14:00 Laboratory Results - last 24 hr 10/30/18 14:00 Sodium 133 L Potassium 3.4 L Chloride 100 Carbon Dioxide 26.1 Anion Gap 7 BUN 10 Creatinine 1.00 Estimated GFR 83 L Random Glucose 110 H Calcium 8.3 L Lipase 319 Vancomycin Trough 5.9 Microbiology 10/28/18 16:25 Blood - Peripheral Aerobic Blood Culture - Preliminary No growth in 3 days 10/28/18 16:25 Blood - Peripheral Anaerobic Blood Culture - Preliminary No growth in 3 days 10/28/18 16:30 Blood - Peripheral Aerobic Blood Culture - Preliminary No growth in 3 days 10/28/18 16:30 Blood - Peripheral Anaerobic Blood Culture - Preliminary No growth in 3 days <Mee Le - Last Filed: 10/31/18 11:28> - Labs CBC & Chem 7: 10/30/18 05:56 10/30/18 14:00 Laboratory Results - last 24 hr 10/30/18 14:00 Sodium 133 L Potassium 3.4 L Chloride 100 Carbon Dioxide 26.1 Anion Gap 7 BUN 10 Creatinine 1.00 Estimated GFR 83 L Random Glucose 110 H Calcium 8.3 L Lipase 319 Vancomycin Trough 5.9 Microbiology 10/28/18 16:25 Blood - Peripheral Aerobic Blood Culture - Preliminary No growth in 3 days 10/28/18 16:25 Blood - Peripheral Anaerobic Blood Culture - Preliminary No growth in 3 days 10/28/18 16:30 Blood - Peripheral Aerobic Blood Culture - Preliminary No growth in 3 days 10/28/18 16:30 Blood - Peripheral Anaerobic Blood Culture - Preliminary No growth in 3 days <Clarice Mayen - Last Filed: 10/31/18 12:44> Assessment and Plan (1) Acute pancreatitis Status: Acute Code(s): K85.90 - Acute pancreatitis without necrosis or infection, unspecified - Plan This patient is a 38-year-old male with past medical history significant for obesity. Patient also endorses recent cough with generalized body aches and severe abdominal pain. Upon consultation, patient endorses that he has had a dry cough for 3 weeks. States he was recently treated for upper respiratory infection with amoxicillin. Patient states he has had one to 2 weeks of abdominal pain which he describes as sharp and shooting across upper abdomen with abdominal bloating. Patient denies any nausea or vomiting. States pain alleviated by administered pain medication and aggravated by movement. Presently tolerating clear liquid diet without any complaints. Patient denies any history of EGD or colonoscopy in the past. Of note, patient does endorse drinking 2-3 shots of vodka "a few times daily". Patient denies any use of tobacco products. Denies any known family history of gastrointestinal disorders. Patient denies any symptoms of acid reflux, difficulty swallowing. States he normally has a bowel movement every 1-2 days formed and brown without any noted bleeding. Our service has been consulted to evaluate patient for pancreatitis. Pancreatitis Patient endorses 2 weeks of sharp upper abdominal pain. Denies radiation of pain. Endorses drinking 2-3 shots of vodka daily. 10/26/2018 CT abdomen and pelvis reveal the following: . Prominent diffuse peripancreatic edema indicating acute pancreatitis. No areas of nonenhancing pancreatic necrosis or organized fluid collections identified. Hepatic steatosis. 10/28/2018 KUB:Examination of the abdomen demonstrates a nasogastric tube with the tip in the left upper quadrant at the duodenal jejunal junction. The stomach is decompressed. Gas-filled loops of nondilated large and small bowel noted within the upper abdomen. 10/28/2018 CTA abdomen and pelvis: Although the SKYLER is occluded the celiac and SMA are widely patent. The SKYLER occlusion is clinically insignificant. Changes consistent with acute pancreatitis. No pseudocyst observed. Small volume ascites. Bilateral pleural effusions with bibasilar consolidations likely relating to atelectasis. -WBC 13.1 hemoglobin 14.0 hematocrit 40.8 -Lipase 2449 trending down -(10/27/18) triglycerides 256 cholesterol 217 LDL cholesterol 122 HDL 44.2 ratio 4.9 10/30/2018 Pancreatitis Patient endorses continued generalized abdominal pain No reported nausea or vomiting WBC 12.9 trending down hemoglobin 12.9 hematocrit 37.8 Lipase pending 10/31/2018 Pancreatitis Patient denies abdominal pain nausea vomiting 10/30/2018 lipase within normal limits 319 Plan -Advance diet as tolerated -Analgesics and antiemetics as per attending -Bowel regimen -Alcohol cessation discussed -Supportive care -GI will sign off at this time, please notify for any further assistance needed This patient has been seen by myself and Dr. Mayen and this note is written on his behalf - Attending Attestation Dr. Mayen <Mee Le - Last Filed: 10/31/18 11:28> (1) Acute pancreatitis Status: Acute Code(s): K85.90 - Acute pancreatitis without necrosis or infection, unspecified - Attending Attestation Agree with above assessment and plan. <Clarice Mayen - Last Filed: 10/31/18 12:44> <Mee Le - Last Filed: 10/31/18 11:28> (1) Acute pancreatitis Qualifiers: Pancreatitis type: unspecified pancreatitis type Acute pancreatitis complication: unspecified Qualified Code(s): K85.90 - Acute pancreatitis without necrosis or infection, unspecified <Clarice Mayen - Last Filed: 10/31/18 12:44> (1) Acute pancreatitis Qualifiers: Pancreatitis type: unspecified pancreatitis type Acute pancreatitis complication: unspecified Qualified Code(s): K85.90 - Acute pancreatitis without necrosis or infection, unspecified
[2018-10-31] MEDS ORDERED: Pharmacy Ordered Lab Info OTHER ONE (12:15)
[2018-10-31 12:22] VITALS: BP 144/65; PULSE 113; TEMP 98.1; O2SAT 99
--- NOTE | 2018-10-31 12:40 | P.PNID ---
Subjective Remarks: pt is doing well probably gets discharged today abd pain improved eating no new c/o no fever Antibiotics: none Allergies/Adverse Reactions: Allergies No Known Allergies Allergy (Verified 10/26/18 16:04) Objective Vital Signs 10/30/18 16:00 10/30/18 20:00 10/30/18 22:03 Temperature 97.6 F 98.9 F Pulse Rate 65 120 H Respiratory Rate 18 18 18 Blood Pressure 151/79 H 133/65 Pulse Oximetry 99 93 L 10/30/18 22:50 10/30/18 23:42 10/30/18 23:43 Temperature 99.0 F Pulse Rate 123 H 121 H Respiratory Rate 18 20 Blood Pressure 172/78 H Pulse Oximetry 96 10/31/18 05:15 10/31/18 08:00 Temperature 97.9 F Pulse Rate 111 H Respiratory Rate 18 20 Blood Pressure 166/72 H Pulse Oximetry 98 Intake & Output 10/30/18 10/31/18 10/31/18 18:59 06:59 18:59 Intake Total 3113.5 / 3113.5 1100 / 1100 Output Total 1200 / 1200 Balance 1913.5 / 1913.5 1100 / 1100 Weight 93.6 kg Intake: IV 2213.5 / 2213.5 1100 / 1100 NS Inj 1,000 ML @ 70 mls/hr IV. 1750 / 1750 1000 / 1000 CONT .[id number] [facility] Rx#:[id number] Zosyn 4.5 GM Premix 4.5 gm In 100 / 100 100 / 100 100 ml @ 200 mls/hr IV.SIG Q6H [facility] Rx#:[id number] Thiamine Inj 100 MG In NS Inj 101 / 101 100 ML @ 100 mls/hr IV.SIG DAILY [facility] Rx#:[id number] Vancomycin Inj 1,250 MG In NS 262.5 / 262.5 Inj 250 ML @ 250 mls/hr IV.SIG Q12H [facility] Rx#:[id number] Oral Supplement 900 / 900 Output: Urine Amount (Catheter) 1200 / 1200 Indwelling Urethral Catheter 1200 / 1200 Other: # Voids 4 Date of Last Bowel Movement 10/30/18 10/30/18 10/30/18 # Bowel Movements 3 10/28/18 16:25 Blood - Peripheral Aerobic Blood Culture - Preliminary No growth in 3 days 10/28/18 16:25 Blood - Peripheral Anaerobic Blood Culture - Preliminary No growth in 3 days 10/28/18 16:30 Blood - Peripheral Aerobic Blood Culture - Preliminary No growth in 3 days 10/28/18 16:30 Blood - Peripheral Anaerobic Blood Culture - Preliminary No growth in 3 days 10/28/18 23:48 Urine - Catheterized Urine Streptococcus pneumoniae Antigen ( M - Final Presumptive negative for streptococcus pneumoniae antigen, suggesting no current or recent infection. Infection due to Streptococcus pneumoniae cannot be ruled out since the antigen present in the sample may be below the detection limit of the test. 10/28/18 23:48 Urine - Catheterized Urine Legionella Antigen - Final Presumptive negative for Legionella pneumophila serogroup 1 antigen in urine, suggesting no recent or recurrent infection. Infection due to Legionella cannot be ruled out since other serogroups and species may cause disease, antigen may not be present in urine in early infection, and the level of antigen present in the urine may be below the detection limit of the test. Lab - Hematology Results 10/30/18 05:56 WBC 12.9 H RBC 4.24 L Hgb 12.9 L Hct 37.8 L MCV 89.2 MCH 30.5 MCHC 34.2 RDW 15.6 Plt Count 200 MPV 8.0 Prelim Diff (Auto) Slide review pending Neut % (Auto) 80.0 H Lymph % (Auto) 7.9 L Tucker % (Auto) 11.3 H Eos % (Auto) 0.5 Baso % (Auto) 0.3 Neut # (Auto) 10.3 H Lymph # (Auto) 1.0 Tucker # (Auto) 1.5 H Eos # (Auto) 0.1 Baso # (Auto) 0.0 WBC Differential Manual diff final Seg Neuts % (Manual) 66 Band Neuts % (Manual) 17 H Lymphocytes % (Manual) 5 L Monocytes % (Manual) 10 H Metamyelocytes % (Man) 2 H Abs Neuts (Manual) 11.0 H Differential Comment . Dohle Bodies Present H Platelet Estimate Normal Platelet Morphology Normal RBC Morphology Normal Lab - Chemistry Results 10/30/18 14:00 Sodium 133 L Potassium 3.4 L Chloride 100 Carbon Dioxide 26.1 Anion Gap 7 BUN 10 Creatinine 1.00 Estimated GFR 83 L Random Glucose 110 H Calcium 8.3 L Lipase 319 Imaging: ITS Impressions Abdomen/Pelvis CT 10/26/18 16:09 CONCLUSION: 1. Prominent diffuse peripancreatic edema indicating acute pancreatitis. No areas of nonenhancing pancreatic necrosis or organized fluid collections identified. 2. Hepatic steatosis. Chest X-Ray 10/26/18 16:09 CONCLUSION: No acute cardiopulmonary disease. Abdomen X-Ray 10/28/18 00:54 CONCLUSION: Tip of the NG tube at the duodenal jejunal junction. Abdomen/Pelvis CTA 10/28/18 04:39 CONCLUSION: 1. Although the SKYLER is occluded the celiac and SMA are widely patent. The SKYLER occlusion is clinically insignificant. 2. Changes consistent with acute pancreatitis. No pseudocyst observed. 3. Small volume ascites. 4. Bilateral pleural effusions with bibasilar consolidations likely relating to atelectasis. Physical Exam: GENERAL: NAD SKIN: Warm and dry. no rash HEAD: Atraumatic. Normocephalic. EYES: Pupils equal and round. No scleral icterus. No injection or drainage. ENT: No nasal bleeding or discharge. Mucous membranes pink and moist. CARDIOVASCULAR: Regular rate and rhythm. no murmurs RESPIRATORY: No accessory muscle use. Clear to auscultation. Breath sounds equal bilaterally. GASTROINTESTINAL: Abdomen soft, non-tender, nondistended. Hepatic and splenic margins not palpable. MUSCULOSKELETAL: Extremities without clubbing, cyanosis, or edema. NEUROLOGICAL: Awake and alert. Non focal Normal speech. PSYCHIATRIC: calm , cooperative Assessment and Plan - Plan pancreatitis: improving SIRS No e/o necrosis or fluid collections leukocytosis - resolved OK to dc home from ID standpoint
--- NOTE | 2018-10-31 13:40 | P.PN ---
Subjective Interval history: doing very well no complains tolerated po voiding well + flatus Physical Exam Vital signs: Vital Signs 10/30/18 16:00 10/30/18 20:00 10/30/18 22:03 Temperature 97.6 F 98.9 F Pulse Rate 65 120 H Respiratory Rate 18 18 18 Blood Pressure 151/79 H 133/65 Pulse Oximetry 99 93 L 10/30/18 22:50 10/30/18 23:42 10/30/18 23:43 Temperature 99.0 F Pulse Rate 123 H 121 H Respiratory Rate 18 20 Blood Pressure 172/78 H Pulse Oximetry 96 10/31/18 05:15 10/31/18 08:00 10/31/18 12:00 Temperature 97.9 F 98.1 F Pulse Rate 111 H 113 H Respiratory Rate 18 20 20 Blood Pressure 166/72 H 144/65 H Pulse Oximetry 98 99 Intake & Output 10/30/18 10/31/18 10/31/18 18:59 06:59 18:59 Intake Total 3113.5 / 3113.5 1100 / 1100 Output Total 1200 / 1200 Balance 1913.5 / 1913.5 1100 / 1100 Weight 93.6 kg Intake: IV 2213.5 / 2213.5 1100 / 1100 NS Inj 1,000 ML @ 70 mls/hr IV. 1750 / 1750 1000 / 1000 CONT .[id number] [facility] Rx#:[id number] Zosyn 4.5 GM Premix 4.5 gm In 100 / 100 100 / 100 100 ml @ 200 mls/hr IV.SIG Q6H [facility] Rx#:[id number] Thiamine Inj 100 MG In NS Inj 101 / 101 100 ML @ 100 mls/hr IV.SIG DAILY [facility] Rx#:[id number] Vancomycin Inj 1,250 MG In NS 262.5 / 262.5 Inj 250 ML @ 250 mls/hr IV.SIG Q12H [facility] Rx#:[id number] Oral Supplement 900 / 900 Output: Urine Amount (Catheter) 1200 / 1200 Indwelling Urethral Catheter 1200 / 1200 Other: # Voids 4 Date of Last Bowel Movement 10/30/18 10/30/18 10/30/18 # Bowel Movements 3 Narrative: GENERAL: awake and alert SKIN: Warm and dry. HEAD: Atraumatic. Normocephalic. EYES: Pupils equal and round. No scleral icterus. No injection or drainage. ENT: No nasal bleeding or discharge. Mucous membranes moist NECK: Trachea midline. No JVD. CARDIOVASCULAR: regular RESPIRATORY: decreased Breath sounds equal bilaterally. GASTROINTESTINAL: Abdomen , soft, globular, no guarding, + bowel sounds, non tender MUSCULOSKELETAL: Extremities without clubbing, cyanosis, or edema. No obvious deformities. NEUROLOGICAL: Awake and alert. No obvious cranial nerve deficits. gait steady PSYCHIATRIC: morte interactive - Urinary Catheter Management Straight Cath placed during this visit: yes, but has since been removed by the nurse Urethral indwelling: No Reason for continuing: Acute urinary retention Insertion date: 10/28/18 Insertion time: 04:30 Removal date: 10/30/18 Indwelling Urethral Catheter Cath placed during this visit: yes, but has since been removed by the nurse Urethral indwelling: Yes Reason for continuing: Acute urinary retention Insertion date: 10/28/18 Insertion time: 04:30 Removal date: 10/30/18 Removal time: 16:00 Results - Labs CBC & Chem 7: 10/30/18 05:56 10/31/18 14:01 Laboratory Results - last 24 hr 10/30/18 14:00 Sodium 133 L Potassium 3.4 L Chloride 100 Carbon Dioxide 26.1 Anion Gap 7 BUN 10 Creatinine 1.00 Estimated GFR 83 L Random Glucose 110 H Calcium 8.3 L Lipase 319 Vancomycin Trough 5.9 Microbiology 10/28/18 16:25 Blood - Peripheral Aerobic Blood Culture - Preliminary No growth in 3 days 10/28/18 16:25 Blood - Peripheral Anaerobic Blood Culture - Preliminary No growth in 3 days 10/28/18 16:30 Blood - Peripheral Aerobic Blood Culture - Preliminary No growth in 3 days 10/28/18 16:30 Blood - Peripheral Anaerobic Blood Culture - Preliminary No growth in 3 days Assessment and Plan - Plan 38-year-old male with a past medical history of obesity and recent cough presents to the ER with severe abdominal pain. Emergency room workup revealed a markedly elevated lipase level and CT confirmation of pancreatitis. Nurse reported that the mother confirmed he is an alcohol drinker, stated drinking more recently due to broke up with a girlfriend. Acute Severe pancreatitis- first episode - lipase down Liver steatosis Constipation -drinks vodkas 3-4 3-4x a weeks- denies chronic alcohol use - CT- shows no biliary duct fdialation, no previous surgery, no gallstone , TG normal -DC morphine as patient says doesn't help, start norco pO per pain scale, add dilaudid IV for breakthrough pain -Monitor on telemetry for risk of bleeding -CT abd/Pelvis Chest: Prominent diffuse peripancreatic edema indicating acute pancreatitis. No areas of nonenhancing pancreatic necrosis or organized fluid collections identified. Hepatic steatosis -CTA Abd/Pevis: lthough the SKYLER is occluded the celiac and SMA are widely patent. The SKYLER occlusion is clinically insignificant. Changes consistent with acute pancreatitis. No pseudocyst observed. Small volume ascites. Bilateral pleural effusions with bibasilar consolidations likely relating to atelectasis -Lipase now normal advance diet - continue IVF - GI consulted SIRS secondary to pancreatitis With leukocytosis, tachycardia Severe lactic acidosis - states ewas really treated for URI- symptoms of cough- with Amoxycilln as OP - source likely upper respiratory infection versus GI, - acute kidney injury with elevated creatinine, lactic acidosis. -Trend lactic acid -seen by ID- DC IV antibiotics -Chest x-ray within normal limits toelrated po Acute Urinary retention- d/w him no history of retention or enlarged prostate- no hsitory of urinary frequency in the apat - mills out 10/30 - voiding -With daily Mills catheter care - urine for UA-with C&S negative - denies history of urinary problems before - was started flomax -.4 mg - dc mills in 3 days - ago advise to patient to up and ambulate Alcohol use - andreas MALAVE protocol -Ativan PRN -Continue thiamine - counselled extensivelu- good support system from Mom DVT prophylaxis SCDs Progress Note: Quality VTE Deep Vein Thrombosis/Pulmonary Embolism Present on Admission: No
--- NOTE | 2018-10-31 13:54 | P.DS ---
Date of admission: 10/26/18 17:38 Primary care physician: No Primary Care Physician Brief History from admission: 38-year-old male with a past medical history of obesity and recent cough presents to the ER with severe abdominal pain. Emergency room workup revealed a markedly elevated lipase level and CT confirmation of pancreatitis. He states that he has been coughing for the last 3 weeks and utilized a number of [id number]-[id number] medications including Sudafed and Robitussin, when that did not work he visited his physician and was prescribed Augmentin along with prednisone. Last night he had 2 alcohol beverages and onset of his symptoms were noticeable this morning, worsening throughout the day. He has had nausea associated with his pain, denies vomiting, denies diarrhea. He denies chest pain, heart palpitations, shortness of breath. DS: Medications - Discharge Medications Prescriptions: hydrocodone-acetaminophen 1 tab PO Q6HR PRN #20 tab PRN Reason: pain 4-10 DS: Summary - Time Spent with Patient Total time spent providing and/or coordinating discharge services: - Quality: VTE Deep Vein Thrombosis/Pulmonary Embolism Present on Admission: No Exam Vital signs: Vital Signs 10/30/18 16:00 10/30/18 20:00 10/30/18 22:03 Temperature 97.6 F 98.9 F Pulse Rate 65 120 H Respiratory Rate 18 18 18 Blood Pressure 151/79 H 133/65 Pulse Oximetry 99 93 L 10/30/18 22:50 10/30/18 23:42 10/30/18 23:43 Temperature 99.0 F Pulse Rate 123 H 121 H Respiratory Rate 18 20 Blood Pressure 172/78 H Pulse Oximetry 96 10/31/18 05:15 10/31/18 08:00 10/31/18 12:00 Temperature 97.9 F 98.1 F Pulse Rate 111 H 113 H Respiratory Rate 18 20 20 Blood Pressure 166/72 H 144/65 H Pulse Oximetry 98 99 Intake & Output 10/30/18 10/31/18 10/31/18 18:59 06:59 18:59 Intake Total 3113.5 / 3113.5 1100 / 1100 Output Total 1200 / 1200 Balance 1913.5 / 1913.5 1100 / 1100 Weight 93.6 kg Intake: IV 2213.5 / 2213.5 1100 / 1100 NS Inj 1,000 ML @ 70 mls/hr IV. 1750 / 1750 1000 / 1000 CONT .[id number] [facility] Rx#:[id number] Zosyn 4.5 GM Premix 4.5 gm In 100 / 100 100 / 100 100 ml @ 200 mls/hr IV.SIG Q6H [facility] Rx#:[id number] Thiamine Inj 100 MG In NS Inj 101 / 101 100 ML @ 100 mls/hr IV.SIG DAILY [facility] Rx#:[id number] Vancomycin Inj 1,250 MG In NS 262.5 / 262.5 Inj 250 ML @ 250 mls/hr IV.SIG Q12H [facility] Rx#:[id number] Oral Supplement 900 / 900 Output: Urine Amount (Catheter) 1200 / 1200 Indwelling Urethral Catheter 1200 / 1200 Other: # Voids 4 Date of Last Bowel Movement 10/30/18 10/30/18 10/30/18 # Bowel Movements 3 Results Labs on day of discharge: Labs from last 24 hours 10/30/18 14:00 Sodium 133 L Potassium 3.4 L Chloride 100 Carbon Dioxide 26.1 Anion Gap 7 BUN 10 Creatinine 1.00 Estimated GFR 83 L Random Glucose 110 H Calcium 8.3 L Lipase 319 Vancomycin Trough 5.9 Preliminary micro results at discharge 10/28/18 16:25 Aerobic Blood Culture - Preliminary Blood - Peripheral No growth in 3 days Anaerobic Blood Culture - Preliminary No growth in 3 days 10/28/18 16:30 Aerobic Blood Culture - Preliminary Blood - Peripheral No growth in 3 days Anaerobic Blood Culture - Preliminary No growth in 3 days - Impressions ITS Impressions Abdomen/Pelvis CT 10/26/18 16:09 CONCLUSION: 1. Prominent diffuse peripancreatic edema indicating acute pancreatitis. No areas of nonenhancing pancreatic necrosis or organized fluid collections identified. 2. Hepatic steatosis. Chest X-Ray 10/26/18 16:09 CONCLUSION: No acute cardiopulmonary disease. Abdomen X-Ray 10/28/18 00:54 CONCLUSION: Tip of the NG tube at the duodenal jejunal junction. Abdomen/Pelvis CTA 10/28/18 04:39 CONCLUSION: 1. Although the SKYLER is occluded the celiac and SMA are widely patent. The SKYLER occlusion is clinically insignificant. 2. Changes consistent with acute pancreatitis. No pseudocyst observed. 3. Small volume ascites. 4. Bilateral pleural effusions with bibasilar consolidations likely relating to atelectasis. Discharge Plan - Discharge Disposition Patient Disposition: Discharge Home - Discharge Condition Condition: Stable - Discharge Order Discharge Orders: Discharge Order (Routine); Ordered 10/31/18 Ordered By: Florin Lerner - Discharge Details Anticipated Discharge Date: 10/31/18 - Physicians Team Primary Care Provider: Primary Care Angie Espinoza Attending Provider: Florin Lerner Other Providers: Stephany Summers MD ; Clarice Mayen MD
[2018-10-31 15:01] LABS: Anion Gap 8 meq/L (5-15); Blood Urea Nitrogen 9 mg/dL (7-18); Calcium 8.7 mg/dL (8.5-10.1); Carbon Dioxide 24.7 meq/L (21.0-32.0); Chloride 100 meq/L (98-107); Glomerular Filtration Rate Greater Than 89 mL/min (>89); Glucose,Random 134 mg/dL (74-106); Lipase 142 U/L (73-393); Sodium 133 meq/L (136-145)
[2018-10-31 15:04] LABS: Vancomycin,Trough 1.7 mcg/mL (5.0-10.0)
== END 2018-10-31 14:09 | disposition home or self-care (01) | DRG 871 ==
LOC: NEPE 15:54 → NEDA 17:38 → N06 19:30 → N07 10-28 17:55
PROVIDERS: ADMIT Internal Medicine; ATTEND Internal Medicine
CPT/HCPCS: 51798; 71010; 71045; 74000; 74018; 74174; 74177; 76937; 80048; 80053; 80061; 80202; 80307; 81001; 82550; 82552; 83520; 83605; 83615; 83690; 83735; 83880; 84484; 85025; 85027; 85610; 85730; 87040; 87449; 90774; 90784; 93005; 96374; 99285; C8952; J1170; J1885; J2060; J2270; J2405; J2543; J3370; J3411; J7030; J7050; Q9967